=== PATIENT | female | born 1930 | race Caucasian/White ===

== ENCOUNTER 2017-07-02 03:06 | Emergency (ER) | payer MEDICARE, OTHER ==
[~2017-07-02] VITALS: Ht 157.5 cm; Wt 99.8 kg
[~2017-07-02 03:06] MED LIST: BENA40TA2 PO; GABA-534 PO; KETO15CR TP; TRAM50TA2 PO
--- NOTE | 2017-07-02 03:15 | NUR ---
TO BED 5 IS AN 87 YO FEMALE PATIENT BIB SON FOR HIGH BLOOD PRESSURE. PT LAST TOOK CLONIDINE 8PM. NO RELIEF. PATIENT IS AAOX4, NAD NOTED. PLACED ON CARDIAC AND VS MONITORING. COMFORT MEASURES RENDERED.
[2017-07-02] MEDS ORDERED: hydrALAZINE HCL IV 20 MG VIAL ONE (03:25)
[2017-07-02] MEDS ORDERED: hydrALAZINE HCL IV 20 MG VIAL IV ONE ×2 (03:30→04:30)
--- NOTE | 2017-07-02 03:40 | NUR ---
started a saline lock on the right forearm g20, blood drawn and sent to lab.
[2017-07-02] MEDS ORDERED: ONDANSETRON HCL/PF 4 MG/2 ML VIAL ONE (03:42)
--- NOTE | 2017-07-02 03:47 | NUR ---
medicated patient as ordered by Dr Bartholomew.
[2017-07-02 03:51] LABS: BASOPHILS % (AUTO) 0.3 % (0.0-2.0); EOSINOPHILS # (AUTO) 0.1 /CMM (0.0-0.7); EOSINOPHILS % (AUTO) 2.4 % (0.0-6.0); HEMATOCRIT 41 % (33-45); HEMOGLOBIN 13.6 g/dL (11.5-14.8); LYMPHOCYTES # (AUTO) 1.4 /CMM (0.8-4.8); LYMPHOCYTES % (AUTO) 23.6 % (20.0-44.0); MEAN CORPUSCULAR HEMOGLOBIN 30 PG (26.0-33.0); MEAN CORPUSCULAR HGB CONC 34 g/dl (31.0-36.0); MEAN CORPUSCULAR VOLUME 89 fL (82-100); MONOCYTES # (AUTO) 0.4 /CMM (0.1-1.30); MONOCYTES % (AUTO) 7.4 % (2.0-12.0); NEUTROPHILS # (AUTO) 3.8 /CMM (1.8-8.9); NEUTROPHILS % (AUTO) 66.3 % (43.0-81.0); PLATELET COUNT (AUTO) 165 /CMM (150-450); RDW COEFFICIENT OF VARIATION 12.9 (11.5-15.0); RED BLOOD CELL COUNT(AUTO) 4.59 MIL/uL (4.0-5.2); WHITE BLOOD COUNT (AUTO) 5.7 K/uL (4.3-11.0)
--- NOTE | 2017-07-02 03:52 | NUR ---
xr at bedside.
[2017-07-02] MEDS ORDERED: ONDANSETRON HCL/PF 4 MG/2 ML VIAL IV ONE (04:00)
--- NOTE | 2017-07-02 04:06 | NUR ---
patient back from ct.
[2017-07-02 04:08] LABS: ALANINE AMINOTRANSFERASE 30 U/L (12-78); ALBUMIN 3.4 g/dL (3.4-5.0); ALKALINE PHOSPHATASE 104 U/L (46-116); ASPARTATE AMINOTRANSFERASE 19 U/L (15-37); BILIRUBIN,DIRECT 0.1 mg/dL (0.0-0.2); BILIRUBIN,TOTAL 0.3 mg/dL (0.2-1.0); CALCIUM, SERUM 9.3 mg/dL (8.5-10.1); CARBON DIOXIDE 27 mmol/L (21-32); CHLORIDE 101 mmol/L (98-107); CREATININE 1.4 mg/dL (0.6-1.3); GLUCOSE 288 mg/dL (74-106); POTASSIUM 4.3 mmol/L (3.5-5.1); SODIUM SERUM 137 mmol/L (136-145); TOTAL PROTEIN, SERUM 7.3 g/dL (6.4-8.2); UREA NITROGEN, BLOOD 32 mg/dL (7-18)
[2017-07-02 04:10] LABS: INR 0.9 (0.87-1.13); TROPONIN I < 0.017 ng/mL (0.00-0.056)
[2017-07-02] MEDS ORDERED: ACETAMINOPHEN ES 500 MG TABLET ONE (05:14)
--- NOTE | 2017-07-02 05:16 | NUR ---
tylenol 1gm given po for headache per Dr Bartholomew's verbal order.
[2017-07-02] MEDS ORDERED: ACETAMINOPHEN 325 MG TABLET PO ONE (05:30)
--- NOTE | 2017-07-02 05:38 | NUR ---
IV removed. Catheter intact and site benign. Pressure and 4x4 applied to site. No bleeding noted. Patient discharged to home in stable condition. Written and verbal after care instructions given. Patient verbalizes understanding of instruction. Pt is ambulatory with assist of a cane. vss. nad noted on dc. pt picked up by son. No further complaints.
[2017-07-02 05:39] VITALS: BP 167/66
== END 2017-07-02 05:39 | disposition home or self-care (01) ==
LOC: ER 03:11
DX: I10 Essential (primary) hypertension (principal); E11.9 Type 2 diabetes mellitus without complications; R51 Headache
CPT/HCPCS: 36415; 70450; 71045; 80048; 80076; 84484; 85025; 85730; 93005; 96374; 96375; 96376; 99285; A4606; J0360; J2405; Z7610

== ENCOUNTER 2018-01-24 02:45 | Emergency (ER) | payer MEDICARE, OTHER ==
[~2018-01-24] VITALS: Ht 157.5 cm; Wt 100.2 kg
[~2018-01-24 02:45] MED LIST changes: -BENA40TA2 PO; +BENA40TA8 PO
--- NOTE | 2018-01-24 02:53 | NUR ---
PT TO ER BED 13. BBSELF C/C "HIGH BLOOD PRESSURE". +N, -V. +DIZZY. PT PLACED IN GOWN AND ON SQUEAK RATTLE AND LEAK REPAIRER. VSS/RESP EVEN UNLABORED/NAD NOTED/SKIN WARM AND DRY/AFEBRILE/ DENIES N-V-D/AOX4. AWAITNG MD AZUL.
--- NOTE | 2018-01-24 03:10 | NUR ---
EMT AT BEDSIDE FOR EKG.
[2018-01-24] MEDS ORDERED: hydrALAZINE HCL IV 20 MG VIAL ONE ×2 (03:30→04:17)
[2018-01-24] MEDS ORDERED: hydrALAZINE HCL IV 20 MG VIAL IV ONE ×2 (03:30→04:30)
[2018-01-24 03:34] LABS: BASOPHILS % (AUTO) 0.3 % (0.0-2.0); EOSINOPHILS % (AUTO) 2.7 % (0.0-6.0); HEMATOCRIT 45 % (33-45); HEMOGLOBIN 14.8 g/dL (11.5-14.8); LYMPHOCYTES # (AUTO) 1.4 /CMM (0.8-4.8); LYMPHOCYTES % (AUTO) 23.9 % (20.0-44.0); MEAN CORPUSCULAR HEMOGLOBIN 30 PG (26.0-33.0); MEAN CORPUSCULAR HGB CONC 33 g/dl (31.0-36.0); MEAN CORPUSCULAR VOLUME 92 fL (82-100); MONOCYTES # (AUTO) 0.4 /CMM (0.1-1.30); MONOCYTES % (AUTO) 7.7 % (2.0-12.0); NEUTROPHILS # (AUTO) 3.8 /CMM (1.8-8.9); NEUTROPHILS % (AUTO) 65.4 % (43.0-81.0); PLATELET COUNT (AUTO) 171 /CMM (150-450); RDW COEFFICIENT OF VARIATION 14.3 (11.5-15.0); RED BLOOD CELL COUNT(AUTO) 4.95 MIL/uL (4.0-5.2); WHITE BLOOD COUNT (AUTO) 5.8 K/uL (4.3-11.0)
--- NOTE | 2018-01-24 03:38 | NUR ---
20G IV TO R AC X 1 ATTEMPT USING ASEPTIC TECH, BLOOD HANDED OVER TO THE LAB AT BEDSIDE. IV FLUSHES EASILY WITH NS, NO S/S INFILTRATION NOTED AT THIS TIME.
[2018-01-24 03:45] LABS: INR 0.95 (0.87-1.13)
[2018-01-24 03:49] LABS: ALANINE AMINOTRANSFERASE 28 U/L (12-78); ALBUMIN 3.9 g/dL (3.4-5.0); ALKALINE PHOSPHATASE 101 U/L (46-116); ASPARTATE AMINOTRANSFERASE 18 U/L (15-37); BILIRUBIN,DIRECT 0.1 mg/dL (0.0-0.2); BILIRUBIN,TOTAL 0.4 mg/dL (0.2-1.0); CALCIUM, SERUM 8.6 mg/dL (8.5-10.1); CARBON DIOXIDE 30 mmol/L (21-32); CHLORIDE 103 mmol/L (98-107); CREATININE 1.3 mg/dL (0.6-1.3); GLUCOSE 203 mg/dL (74-106); SODIUM SERUM 140 mmol/L (136-145); TOTAL PROTEIN, SERUM 7.9 g/dL (6.4-8.2); UREA NITROGEN, BLOOD 27 mg/dL (7-18)
[2018-01-24 03:50] LABS: TROPONIN I < 0.017 ng/mL (0.00-0.056)
--- NOTE | 2018-01-24 03:55 | NUR ---
PT TO CT VIA STRETCHER.
--- NOTE | 2018-01-24 04:13 | NUR ---
PT BACK FROM CT.
--- NOTE | 2018-01-24 04:15 | NUR ---
MADE AWARE PT B/P 228/74. NEW ORDERS RECEIVED.
[2018-01-24] MEDS ORDERED: GABAPENTIN 100 MG CAPSULE ONE ×2 (04:48→05:16)
[2018-01-24] MEDS ORDERED: LORAZEPAM INJ 2 MG/ML VIAL ONE (04:49)
[2018-01-24] MEDS ORDERED: NS 0.9% IV SCH (05:00)
[2018-01-24] MEDS ORDERED: LORAZEPAM INJ 2 MG/ML VIAL IV ONE (05:00)
[2018-01-24] MEDS ORDERED: HYDRALAZINE HCL IV SCH (05:00)
[2018-01-24] MEDS ORDERED: GABAPENTIN 100 MG CAPSULE PO ONE ×2 (05:00→05:30)
--- NOTE | 2018-01-24 05:33 | NUR ---
MD AT BEDSIDE SPEAKING WITH PATIENT.
[2018-01-24] MEDS ORDERED: CLONIDINE HCL 0.1 MG TABLET ONE (05:49)
[2018-01-24] MEDS ORDERED: CLONIDINE HCL 0.1 MG TABLET PO ONE (06:00)
--- NOTE | 2018-01-24 06:10 | NUR ---
IV removed. Catheter intact and site benign. Pressure and 4x4 applied to site. No bleeding noted. Patient discharged with son to home in stable condition. Written and verbal after care instructions given. Patient verbalizes understanding of instruction. Patient is awake and alert to self, day, and place. Patient discharged by wheelchair.
[2018-01-24 06:11] VITALS: BP 156/98
== END 2018-01-24 06:12 | disposition home or self-care (01) ==
LOC: ER 02:47
DX: I16.0 Hypertensive urgency (principal); E11.9 Type 2 diabetes mellitus without complications
CPT/HCPCS: 36415; 70450; 71045; 80048; 80076; 84484; 85025; 85730; 93005; 96374; 96375; 96376; 99285; A4606; J0360 ×2; J2060; A4216; Z7610

== ENCOUNTER 2019-02-08 16:25 | Inpatient (IN) | payer MEDICARE, OTHER ==
[~2019-02-08] VITALS: Ht 157.5 cm; Wt 93.0 kg
--- NOTE | 2019-02-08 16:34 | NUR ---
"BIB Son from home c/o "Chest Pressure past 3d" PT AAOX4, -SOB, NAD NOTED, VSS ,PENDING MD AZUL
[2019-02-08 17:09] LABS: BASOPHILS # (AUTO) 0.1 /CMM (0.0-0.2); BASOPHILS % (AUTO) 1.2 % (0.0-2.0); EOSINOPHILS % (AUTO) 2.8 % (0.0-6.0); HEMATOCRIT 37 % (33-45); HEMOGLOBIN 12.2 g/dL (11.5-14.8); LYMPHOCYTES # (AUTO) 1.3 /CMM (0.8-4.8); MEAN CORPUSCULAR HGB CONC 33 g/dl (31.0-36.0); MEAN CORPUSCULAR VOLUME 93 fL (82-100); MONOCYTES # (AUTO) 0.4 /CMM (0.1-1.30); MONOCYTES % (AUTO) 7.9 % (2.0-12.0); NEUTROPHILS % (AUTO) 61.1 % (43.0-81.0); PLATELET COUNT (AUTO) 130 /CMM (150-450); RED BLOOD CELL COUNT(AUTO) 3.92 MIL/uL (4.0-5.2); WHITE BLOOD COUNT (AUTO) 4.9 K/uL (4.3-11.0)
[2019-02-08] MEDS ORDERED: NITROGLYCERIN 0.4 MG/TAB BOTTLE ONE (17:11)
[2019-02-08 17:20] LABS: CALCIUM, SERUM 8.9 mg/dL (8.5-10.1); CARBON DIOXIDE 28 mmol/L (21-32); CHLORIDE 106 mmol/L (98-107); CREATININE 1.3 mg/dL (0.6-1.3); GLUCOSE 116 mg/dL (74-106); POTASSIUM 4.2 mmol/L (3.5-5.1); SODIUM SERUM 143 mmol/L (136-145); UREA NITROGEN, BLOOD 28 mg/dL (7-18)
[2019-02-08 17:26] LABS: ALANINE AMINOTRANSFERASE 19 U/L (12-78); ALBUMIN 3.5 g/dL (3.4-5.0); ALKALINE PHOSPHATASE 66 U/L (46-116); ASPARTATE AMINOTRANSFERASE 14 U/L (15-37); BILIRUBIN,DIRECT 0.1 mg/dL (0.0-0.2); BILIRUBIN,TOTAL 0.4 mg/dL (0.2-1.0); TOTAL PROTEIN, SERUM 6.6 g/dL (6.4-8.2)
[2019-02-08] MEDS ORDERED: CARV25TA PO (17:27)
[2019-02-08] MEDS ORDERED: LOSA100T31 PO (17:27)
[2019-02-08] MEDS ORDERED: ASPI-605 PO (17:27)
[2019-02-08] MEDS ORDERED: METF-442 PO (17:27)
[2019-02-08] MEDS ORDERED: MELA3TAB PO (17:27)
[2019-02-08] MEDS ORDERED: DOXA8TAB79 PO (17:27)
[2019-02-08] MEDS ORDERED: POTA10CA43 PO (17:27)
[2019-02-08] MEDS ORDERED: *INS NOVA SQ (17:27)
[2019-02-08] MEDS ORDERED: INSU200I4 SQ ×2 (17:27)
[2019-02-08] MEDS ORDERED: CLON0.1T PO (17:27)
[2019-02-08] MEDS ORDERED: PREG75CA PO (17:27)
[2019-02-08] MEDS ORDERED: CHOL20004 PO (17:27)
[2019-02-08] MEDS ORDERED: DULO30CA2 PO (17:27)
[2019-02-08] MEDS ORDERED: NITR0.4T48 SL (17:27)
[2019-02-08] MEDS ORDERED: GABA800T11 PO (17:27)
[2019-02-08] MEDS ORDERED: CHLO25TA2 PO (17:27)
[2019-02-08] MEDS ORDERED: DULA0.75 SQ (17:27)
[2019-02-08] MEDS ORDERED: BLOO-697 IN (17:27)
[2019-02-08] MEDS ORDERED: NITROGLYCERIN 0.4 MG/TAB BOTTLE SL ONE ×2 (17:30→19:00)
[2019-02-08] MEDS ORDERED: ASPIRIN 325 MG TABLET PO ONE (18:00)
[2019-02-08] MEDS ORDERED: ASPIRIN 325 MG TABLET ONE (18:07)
--- NOTE | 2019-02-08 18:35 | NUR ---
PT GOING TO TELE 310.2
[2019-02-08] MEDS ORDERED: MAGNESIUM HYDROXIDE 30 ML UDC PO PRN (19:00)
[2019-02-08] MEDS ORDERED: DEXTROSE 50%-WATER 50 ML DISP.SYRIN IV PRN (19:00)
[2019-02-08] MEDS ORDERED: MORPHINE SULFATE INJ 2 MG/ML DISP.SYRIN IV PRN (19:00)
[2019-02-08] MEDS ORDERED: TEMAZEPAM 15 MG CAPSULE PO PRN (19:00)
[2019-02-08] MEDS ORDERED: ONDANSETRON HCL/PF 4 MG/2 ML VIAL IVP PRN (19:00)
[2019-02-08] MEDS ORDERED: ACETAMINOPHEN 325 MG TABLET PO PRN (19:00)
[2019-02-08] MEDS ORDERED: HYDROCODONE/APAP 5/325MG 1 EACH TABLET PO PRN (19:00)
[2019-02-08] MEDS ORDERED: MAG HYDROX/AL HYDROX/SIMETH 30 ML UDC PO PRN (19:00)
[2019-02-08] MEDS ORDERED: NITROGLYCERIN 0.4 MG/TAB BOTTLE SL PRN (19:30)
--- NOTE | 2019-02-08 20:23 | NUR ---
REPORT GIVEN TO SHAN SHETH FOR ALLY; PT WILL BE TRANSPORTED TO 3RD FLOOR VIA ACLS PROTOCOL
--- NOTE | 2019-02-08 20:24 | NUR ---
grinding machine operator notes Received report from ER nurse MERYL Sanon
--- NOTE | 2019-02-08 20:32 | NUR ---
banking teacher notes Echo at the bedside.
--- NOTE | 2019-02-08 20:40 | NUR ---
private banker notes Received Pt from ER nurse MERYL Sanon. Pt arrived at unit via gurney with ACLS Protocol. Pt is 88 Y O F with a diagnose of Chest pain, possible acute coronary syndrome. Pt is alert and oriented x4. Respiration is normal. No SOB. No nausea or vomiting. Pt denies any pain or discomfort at this time. IV sites at Left forearm is clean, intact, patent and SL. Skin dry warm to touch. Pt has a steady gait and able to ambulate with Pt's cane and assistant professor of chemistry. Pt's cane at the bedside. Skin assessment done. Pt's skin is intact. Pt's belonging was checked by VIC Molina and placed in Pt's chart. Educate Pt the use of unit amenities (call light). Instructed to call. Safety precautions is maintained. Bed at low position, brakes locked, side rails upX2 and call light is within reach. Will continue to monitor.
[2019-02-08 20:44] VITALS: BP 182/72
[2019-02-08 21:43] VITALS: BP 184/74
[2019-02-08] MEDS: DOXAZOSIN MESYLATE (4 MG) 4 MG TABLET PO SCH (21:45)
[2019-02-08] MEDS: BLOOD SUGAR DIAGNOSTIC 1 EACH STRIP IN SCH (21:52)
--- NOTE | 2019-02-08 22:47 | NUR ---
tape duplicator notes Administered Tylenol 325mg/2tabs/PO as ordered for headache per Pt request. Will continue to monitor.
[2019-02-08 23:17] VITALS: BP 186/67
[2019-02-08] MEDS: CLONIDINE HCL 0.1 MG TABLET PO SCH (23:21)
[2019-02-09] VITALS (8 sets, daily range): BP systolic 132–172; BP diastolic 60–105
--- NOTE | 2019-02-09 01:00 | NUR ---
global climate change researcher notes environmental monitoring technician showed sinus rythm 46 bpm with first degree AV block. Charge nurse MERYL Mojica informed and notify. Cardiology consult in the morning. Pt is alert and oriented X4, and asymptomatic. Pt denies any pain or discomfort at this time. Pt is NPO. Will continue to monitor.
--- NOTE | 2019-02-09 04:29 | NUR ---
psychological aide notes Contacted and informed DR. Martinez about Pt's BP. BP 172/61, pulse 51. MD ordered Lisinopril 10 mg/PO/one time. Charge nurse MERYL Mojica is aware and notify. Order carried out.
--- NOTE | 2019-02-09 04:39 | NUR ---
gut snatcher notes Administered Lisinopril 10 mg/PO/one time as ordered for Pt for high BP. BP 172/61, PULSE 51. Will continue to monitor
--- NOTE | 2019-02-09 04:40 | NUR ---
garment mender notes Pt's requesting for a walk. Pt was ambulating in nursing station and hallway. Pt ambulated with cane and veterinary technician assistant. Pt tolerated activity well. No SOB. No dizziness. Will continue to monitor.
[2019-02-09] MEDS ORDERED: LISINOPRIL (10MG) 10 MG TABLET PO ONE (05:00)
[2019-02-09 06:11] LABS: BASOPHILS % (AUTO) 0.1 % (0.0-2.0); EOSINOPHILS % (AUTO) 2.7 % (0.0-6.0); HEMATOCRIT 37 % (33-45); HEMOGLOBIN 12.5 g/dL (11.5-14.8); LYMPHOCYTES # (AUTO) 1.4 /CMM (0.8-4.8); MEAN CORPUSCULAR HGB CONC 34 g/dl (31.0-36.0); MEAN CORPUSCULAR VOLUME 93 fL (82-100); MONOCYTES # (AUTO) 0.4 /CMM (0.1-1.30); MONOCYTES % (AUTO) 7.1 % (2.0-12.0); NEUTROPHILS # (AUTO) 3.6 /CMM (1.8-8.9); NEUTROPHILS % (AUTO) 65.1 % (43.0-81.0); PLATELET COUNT (AUTO) 133 /CMM (150-450); RED BLOOD CELL COUNT(AUTO) 3.99 MIL/uL (4.0-5.2); WHITE BLOOD COUNT (AUTO) 5.6 K/uL (4.3-11.0)
--- NOTE | 2019-02-09 06:30 | NUR ---
pan washer closing notes Pt is alert and oriented X4. Pt is resting in bed comfortably. Awaken easily. Respiration is normal. No SOB. No S/S of distress noted. IV sites at [facility] is clean, intact, patent and SL. Routine meds were given as ordered. Cardiac monitored showed sinus gabbie 49 bpm with first degree AV block. Kept Pt NPO. Kept Pt warm, clean, dry and comfortable. Safety precautions is maintained, side rails upX2, brakes locked and call light is within reach. Will endorse to morning nurse for ALLY.
[2019-02-09] MEDS: BLOOD SUGAR DIAGNOSTIC 1 EACH STRIP IN SCH ×4 (06:32→21:46)
[2019-02-09 06:44] LABS: CHOLESTEROL 148 mg/dL (<200); HDL CHOLESTEROL 40 mg/dL (40-60); LDL 83 mg/dL (0-99); TRIGLYCERIDES 181 mg/dL (30-150)
[2019-02-09 06:59] LABS: CALCIUM, SERUM 8.5 mg/dL (8.5-10.1); CARBON DIOXIDE 28 mmol/L (21-32); CHLORIDE 106 mmol/L (98-107); CREATININE 1.1 mg/dL (0.6-1.3); GLUCOSE 115 mg/dL (74-106); MAGNESIUM 2.1 mg/dL (1.8-2.4); PHOSPHORUS 3.1 mg/dL (2.5-4.9); POTASSIUM 3.9 mmol/L (3.5-5.1); SODIUM SERUM 143 mmol/L (136-145); UREA NITROGEN, BLOOD 26 mg/dL (7-18)
[2019-02-09] MEDS ORDERED: FUROSEMIDE 40 MG/4 ML VIAL IV ONE (07:21)
[2019-02-09] MEDS: CLONIDINE HCL 0.1 MG TABLET PO SCH ×2 (08:01→17:14)
[2019-02-09] MEDS ORDERED: IV NS 0.9% 250 ML IV ONE (08:02)
[2019-02-09] MEDS ORDERED: IOHEXOL-350 100 ML VIAL IV ONE (08:02)
[2019-02-09] MEDS: GABAPENTIN 100 MG CAPSULE PO SCH ×2 (08:31→17:13)
[2019-02-09] MEDS: CHOLECALCIFEROL 1,000 UNIT TABLET (VIT D3) PO SCH (08:35)
[2019-02-09] MEDS: PREGABALIN 25 MG CAPSULE PO SCH ×2 (08:35→17:11)
[2019-02-09] MEDS: HYDROCHLOROTHIAZIDE 25 MG TABLET PO SCH (08:36)
[2019-02-09] MEDS: ASPIRIN EC 81 MG TABLET.DR PO SCH (08:36)
[2019-02-09] MEDS: CARVEDILOL 12.5 MG TABLET PO SCH (08:37)
[2019-02-09] MEDS: VALSARTAN 80 MG TABLET PO SCH (08:39)
[2019-02-09] MEDS: POTASSIUM CHLORIDE 10 MEQ TABLET.SA PO SCH (08:40)
[2019-02-09] MEDS: DULOXETINE HCL 30 MG CAPSULE.DR PO SCH (08:41)
[2019-02-09] MEDS ORDERED: CARVEDILOL 25 MG TABLET PO SCH (09:00)
[2019-02-09] MEDS ORDERED: CLONIDINE HCL 0.1 MG TABLET PO SCH (09:00)
[2019-02-09] MEDS ORDERED: LOSARTAN POTASSIUM 25 MG TABLET PO SCH (09:00)
[2019-02-09] MEDS ORDERED: NITROGLYCERIN 0.4 MG/TAB BOTTLE SL ONE (10:00)
[2019-02-09] MEDS ORDERED: METOPROLOL TARTRATE INJ 5 MG/5 ML AMPUL IVP ONE (10:00)
[2019-02-09] MEDS: INSULIN REGULAR, HUMAN 100 UNIT/ML 3 ML VIAL SQ PRN ×2 (12:48→21:47)
--- NOTE | 2019-02-09 18:58 | NUR ---
RN CLOSING NOTE PATIENT IN BED AND ALERT X4. IV PATENT AND FLUSHING. EATING WELL. PARTICIPATING IN CARE. CTA DONE TODAY RESULTS SHOW STENOSIS IN MULTIPLE LOCATIONS AWATITING CARDIOLOGY AND MD FOR NEW ORDERS IF NEED BE. BLOOD SUGAR MANAGED WITH INSULIN. PATIENT ABLE TO AMBULATE WITH CANE AND ASSISTANCE. CONTINUE HOSPITALIZATION AT THIS TIME. SON CALLED AND WANTED TO CONFIRM MEDICATION PROFILE, ATROVOSTATIN WAS NOT INCLUDED IN MEDICATION PROFILE AT THIS TIME OF ADMISSION. RN INFORMED PATIENT. ALL NEEDS MET AT THIS TIME. BED IN LOW POSITION AND CALL LIGHT WITHIN REACH. ALL NEEDS MET AT THIS TIME.
--- NOTE | 2019-02-09 19:53 | NUR ---
MS RN NOTE RECEIVED PT IN STABLE CONDITION A/O X4, CURRENTLY RESTING IN BED, EASILY RESPONDS TO NAME. NO SIGNS OF SOB OR DISTRESS, NO C/O PAIN. IV IN LFA #[address] ALL CURRENT NEEDS ATTENDED TO. BED LOW, LOCKED, UPPER RAILS UP, AND CALL LIGHT WITHIN REACH. WILL CONT. TO MONITOR.
[2019-02-09] MEDS: DOXAZOSIN MESYLATE (4 MG) 4 MG TABLET PO SCH (21:42)
--- NOTE | 2019-02-10 06:15 | NUR ---
MS RN NOTE PT IN STABLE CONDITION A/O X4, CURRENTLY RESTING IN BED, EASILY RESPONDS TO NAME. NO SIGNS OF SOB OR DISTRESS, NO C/O PAIN. IV IN LFA #[address] ALL CURRENT NEEDS ATTENDED TO. BED LOW, LOCKED, UPPER RAILS UP, AND CALL LIGHT WITHIN REACH. WILL CONT. TO MONITOR AND ENDORSE TO NEXT SHIFT FOR ALLY.
[2019-02-10 06:26] LABS: BASOPHILS % (AUTO) 0.5 % (0.0-2.0); EOSINOPHILS % (AUTO) 2.6 % (0.0-6.0); HEMATOCRIT 37 % (33-45); HEMOGLOBIN 12.6 g/dL (11.5-14.8); LYMPHOCYTES # (AUTO) 1.2 /CMM (0.8-4.8); LYMPHOCYTES % (AUTO) 23.1 % (20.0-44.0); MEAN CORPUSCULAR HGB CONC 34 g/dl (31.0-36.0); MEAN CORPUSCULAR VOLUME 93 fL (82-100); MONOCYTES # (AUTO) 0.4 /CMM (0.1-1.30); MONOCYTES % (AUTO) 7.7 % (2.0-12.0); NEUTROPHILS # (AUTO) 3.3 /CMM (1.8-8.9); NEUTROPHILS % (AUTO) 66.1 % (43.0-81.0); PLATELET COUNT (AUTO) 132 /CMM (150-450); RED BLOOD CELL COUNT(AUTO) 4.02 MIL/uL (4.0-5.2)
[2019-02-10] MEDS: INSULIN REGULAR, HUMAN 100 UNIT/ML 3 ML VIAL SQ PRN ×3 (06:29→17:26)
[2019-02-10 06:37] LABS: ALANINE AMINOTRANSFERASE 15 U/L (12-78); ALBUMIN 3.4 g/dL (3.4-5.0); ALKALINE PHOSPHATASE 67 U/L (46-116); ASPARTATE AMINOTRANSFERASE 12 U/L (15-37); BILIRUBIN,TOTAL 0.5 mg/dL (0.2-1.0); CALCIUM, SERUM 8.6 mg/dL (8.5-10.1); CARBON DIOXIDE 30 mmol/L (21-32); CHLORIDE 101 mmol/L (98-107); CREATININE 1.3 mg/dL (0.6-1.3); GLUCOSE 155 mg/dL (74-106); MAGNESIUM 1.8 mg/dL (1.8-2.4); PHOSPHORUS 4.3 mg/dL (2.5-4.9); POTASSIUM 3.9 mmol/L (3.5-5.1); SODIUM SERUM 139 mmol/L (136-145); TOTAL PROTEIN, SERUM 6.8 g/dL (6.4-8.2); UREA NITROGEN, BLOOD 26 mg/dL (7-18)
[2019-02-10] MEDS: BLOOD SUGAR DIAGNOSTIC 1 EACH STRIP IN SCH ×3 (07:32→17:25)
--- NOTE | 2019-02-10 07:40 | NUR ---
MS RN OPENING NOTES RECEIVED PT AWAKE, SITTING AT A CHAIR, A/O X3-4. PT TOLERATING RA, WITH NO ACUTE RESPIRATORY DISTRESS NOTED. PT DENIES ANY PAIN OR DISCOMFORT AT THIS TIME. PT ALSO DENIES CONCERNS AND QUESTIONS AT THIS MOMENT. PIV TO LFA G18 AND RFA, BOTH FLUSHED WITH NS, INTACT AND OPERATIONAL. PT KEPT COMFORTABLE AT THIS TIME. CALL LIGHT KEPT WITHIN REACH. PT'S BED IN LOWEST, LOCKED POSITION WITH SR X2. WILL CONTINUE PLAN OF CARE.
[2019-02-10 08:00] VITALS: BP 110/53
[2019-02-10] MEDS: POTASSIUM CHLORIDE 10 MEQ TABLET.SA PO SCH (08:27)
[2019-02-10] MEDS: HYDROCHLOROTHIAZIDE 25 MG TABLET PO SCH (08:28)
[2019-02-10] MEDS: ASPIRIN EC 81 MG TABLET.DR PO SCH (08:28)
[2019-02-10] MEDS: DULOXETINE HCL 30 MG CAPSULE.DR PO SCH (08:28)
[2019-02-10] MEDS: GABAPENTIN 100 MG CAPSULE PO SCH ×2 (08:28→17:17)
[2019-02-10] MEDS: CHOLECALCIFEROL 1,000 UNIT TABLET (VIT D3) PO SCH (08:28)
[2019-02-10] MEDS: PREGABALIN 25 MG CAPSULE PO SCH ×2 (08:37→17:00)
[2019-02-10] MEDS: CLONIDINE HCL 0.1 MG TABLET PO SCH ×2 (08:37→17:17)
[2019-02-10] MEDS: CARVEDILOL 12.5 MG TABLET PO SCH (08:37)
[2019-02-10] MEDS: VALSARTAN 80 MG TABLET PO SCH (08:38)
[2019-02-10] MEDS ORDERED: IV NS 0.9% 1,000 ML IV PRN (08:51)
[2019-02-10] MEDS ORDERED: ATORVASTATIN 10 MG TABLET PO SCH (09:00)
--- NOTE | 2019-02-10 09:08 | NUR ---
MS RN NOTES DR RANGEL CAME AND SEN THE PT. ORDERED FOR PT TO BE MPO EXCEPT MEDS FOR CARDIAC CATH PROCEDURE TODAY. PT REFUSED, RISK AND BENEFITS EXPLAINED. HOSPITALIST/SQUADRON WORKER/NN MADE AWARE AND CAME TO THE ROOM AND EXPLAINED RISK AND BENEFITS AGAIN, PT INSISTED TO REFUSED. SON/COLLETTE CALLED AND MADE AWARE OF PT'S REFUSAL FOR THE PROCEDURE. SON STATED HE'LL BE HERE IN AN HOUR TO CONVINCE HIS MOM AND TO SIGN CONSENT.
--- NOTE | 2019-02-10 12:30 | NUR ---
MS RN NOTES SON/COLLETTE PRESENT AT BEDSIDE TRIED AND DISCUSSED TO PT REGARDING CARDIAC CATH. PT INSISTED TO REFUSE. HOSPITALIST/CARD LACER JACQUARD/NN MADE AWARE NO NEW ORDERS AT THIS TIME.
[2019-02-10 15:45] VITALS: BP 128/70
--- NOTE | 2019-02-10 19:32 | NUR ---
MS RN CLOSING NOTES PT AWAKE, SITTING AT A CHAIR, A/O X3-4. PT TOLERATING RA, WITH NO ACUTE RESPIRATORY DISTRESS NOTED. PT DENIES ANY PAIN OR DISCOMFORT AT THIS TIME.PIV TO LFA G18 AND RFA, BOTH FLUSHED WITH NS, INTACT AND OPERATIONAL. ALL NEEDS AND CARE ATTENDED. PT AWARE OF DISCHARGE PLAN TONIGHT. SON/COLLETTE TO CARTOGRAPHY/MAPPING TECHNICIAN AT 2230. PT KEPT COMFORTABLE. CALL LIGHT KEPT WITHIN REACH. PT'S BED IN LOWEST, LOCKED POSITION WITH SR X2. ENDORSED TO INCOMING NIGHT NURSE VENUS/RN FOR ALLY.
[2019-02-10 20:00] VITALS: BP 142/66
--- NOTE | 2019-02-10 22:00 | NUR ---
MS SOCIAL STAFF WORKER NOTES PT A/O X3 AND ABLE TO MAKE NEEDS KNOWN. PT DISCHARGING WITH SON/COLLETTE. VVS. NO COMPLAINTS OF PAIN AT THIS TIME. RESPIRATIONS EVEN AND UNLABORED WITH NO S/S OF ACUTE DISTRESS OR SOB NOTED. REMOVED PT'S IVS WITH CATH INTACT AND NO BLEEDING. EXPLAINED DISCHARGE DIRECTIONS TO PT AND FAMILY AND BOTH VERBALIZED UNDERSTANDING. BELONGING LIST SIGNED WITH NO REPORTED MISSING ITEMS. DISCHARGE PAPERS GIVEN TO PT TO TAKE WITH. PT WHEELED OUT TO CAR VIA WHEELCHAIR.
--- NOTE | 2019-02-10 23:47 | NUR ---
MS MERYL NOTES RECEIVED PT IN BED AWAKE AND ABLE TO MAKE NEEDS KNOWN. PT A/O X3-4. RESPIRATIONS EVEN AND UNLABORED WITH NO S/S OF ACUTE DISTRESS OR SOB NOTED. PT TOLERATING RA. PT DENIES PAIN AT THIS TIME. IV TO LFA G18 AND RFA, BOTH FLUSHED WITH NS, PATENT AND INTACT AND SL. SAFETY MEASURES IN PLACE [facility] BED IN LOWEST LOCKED POSITION WITH SIDE RAILS UP X2. CALL LIGHT WITHIN REACH. WILL CONTINUE TO MONITOR. Addendum: 02/10/19 at 2933 by VENUS TONG RN TIME 1909
== END 2019-02-10 22:00 | disposition home or self-care (01) | DRG 303 ==
LOC: ER 16:28 → TELE 18:38 → MED 02-09 10:32
PROVIDERS: ADMIT Nurse Practitioner Acute Care; ATTEND Nurse Practitioner Acute Care
DX: I25.10 Atherosclerotic heart disease of native coronary artery without angina pectoris (principal); E11.9 Type 2 diabetes mellitus without complications; E78.5 Hyperlipidemia, unspecified; M19.90 Unspecified osteoarthritis, unspecified site; I10 Essential (primary) hypertension; Z79.4 Long term (current) use of insulin; G47.33 Obstructive sleep apnea (adult) (pediatric); Z79.82 Long term (current) use of aspirin; Z79.84 Long term (current) use of oral hypoglycemic drugs; Z79.899 Other long term (current) drug therapy; Z96.651 Presence of right artificial knee joint; I70.0 Atherosclerosis of aorta; Z68.39 Body mass index [BMI] 39.0-39.9, adult; E66.01 Morbid (severe) obesity due to excess calories; R00.1 Bradycardia, unspecified; I25.84 Coronary atherosclerosis due to calcified coronary lesion; R79.89 Other specified abnormal findings of blood chemistry
CPT/HCPCS: 36415; 71045-TC; 75574; 80048-TC; 80053-TC; 80061-TC; 80076-TC; 82962-TC; 83735-TC; 83880; 84100-TC; 84484-TC; 85025-TC; 87081-TC; 93307-TC; G0378; J1815; J1940; J7030; J7050; Q9967

== ENCOUNTER 2019-06-03 01:34 | Inpatient (IN) | payer MEDICARE, OTHER ==
[~2019-06-03] VITALS: Ht 157.5 cm; Wt 98.0 kg
[~2019-06-03 01:34] MED LIST changes: +*INS NOVA SQ; +ASPI-605 PO; -BENA40TA8 PO; +BLOO-697 IN; +CARV25TA PO; +CHLO25TA2 PO; +CHOL20004 PO; +CLON0.1T PO; +DOXA8TAB79 PO; +DULA0.75 SQ; +DULO30CA2 PO; -GABA-534 PO; +GABA800T11 PO; +INSU200I4 SQ; -KETO15CR TP; +LOSA100T31 PO; +MELA3TAB63 PO; +METF-442 PO; +NITR0.4T48 SL; +POTA10CA43 PO; +PREG75CA PO; -TRAM50TA2 PO
--- NOTE | 2019-06-03 01:58 | NUR ---
[id number] FROM HOME C/C DIFFICULTY BREATHING AND INTERMITTENT COUGH, PT ALSO REPORTED ON AND OFF CP FOR THE PAST MONTH . BG 226 PER EMS, PLACED ON A MONITOR. VSS
[2019-06-03 02:34] LABS: BASOPHILS % (AUTO) 0.5 % (0.0-2.0); EOSINOPHILS % (AUTO) 3.3 % (0.0-6.0); HEMATOCRIT 32 % (33-45); HEMOGLOBIN 10.6 g/dL (11.5-14.8); LYMPHOCYTES # (AUTO) 0.7 /CMM (0.8-4.8); LYMPHOCYTES % (AUTO) 12.5 % (20.0-44.0); MEAN CORPUSCULAR HGB CONC 33 g/dl (31.0-36.0); MEAN CORPUSCULAR VOLUME 92 fL (82-100); MONOCYTES # (AUTO) 0.4 /CMM (0.1-1.30); NEUTROPHILS # (AUTO) 4.5 /CMM (1.8-8.9); NEUTROPHILS % (AUTO) 76.7 % (43.0-81.0); PLATELET COUNT (AUTO) 134 /CMM (150-450); RED BLOOD CELL COUNT(AUTO) 3.46 MIL/uL (4.0-5.2); WHITE BLOOD COUNT (AUTO) 5.9 K/uL (4.3-11.0)
[2019-06-03 02:41] LABS: CALCIUM, SERUM 8.3 mg/dL (8.5-10.1); CARBON DIOXIDE 25 mmol/L (21-32); CHLORIDE 106 mmol/L (98-107); CREATININE 1.5 mg/dL (0.6-1.3); GLUCOSE 213 mg/dL (74-106); POTASSIUM 5.2 mmol/L (3.5-5.1); SODIUM SERUM 141 mmol/L (136-145); UREA NITROGEN, BLOOD 42 mg/dL (7-18)
[2019-06-03 02:55] LABS: B-TYPE NATRIURETIC PEPTIDE 237 PG/ML (0-125)
--- NOTE | 2019-06-03 03:27 | NUR ---
AT THE BED SIDE
--- NOTE | 2019-06-03 03:45 | NUR ---
SEEN BY HERMILO BAHENA DNP
[2019-06-03] MEDS ORDERED: Z GUARD REMEDY 2 OZ OINT TP PRN (04:00)
[2019-06-03] MEDS ORDERED: ONDANSETRON HCL/PF 4 MG/2 ML VIAL IVP PRN (04:00)
[2019-06-03] MEDS ORDERED: MAGNESIUM HYDROXIDE 30 ML UDC PO PRN (04:00)
[2019-06-03] MEDS ORDERED: ACETAMINOPHEN 325 MG TABLET PO PRN (04:00)
[2019-06-03] MEDS ORDERED: DEXTROSE 50%-WATER 50 ML DISP.SYRIN IV PRN (04:00)
[2019-06-03] MEDS ORDERED: ZOLPIDEM TARTRATE 5 MG TABLET PO PRN (04:00)
[2019-06-03] MEDS ORDERED: FUROSEMIDE 40 MG/4 ML VIAL ONE (04:16)
[2019-06-03] MEDS ORDERED: FUROSEMIDE 40 MG/4 ML VIAL IV ONE (04:30)
--- NOTE | 2019-06-03 04:42 | NUR ---
REPORT GIVEN TO AFSANEH ON THIRD FLOOR
[2019-06-03 05:00] VITALS: BP 129/69
--- NOTE | 2019-06-03 05:00 | NUR ---
RN NOTES RECEIVED PT. FROM ER WITH DX. OF ACS, PATIENT IS A/OX3, AMBULATE WITH ASSIST, SB ON TELE MONITOR HR-56, DENIES PAIN, NO SOB, ADMISSION INSTRUCTION WAS GIVEN, CALL LIGHT WITHIN REACH, BED IN LOCKED POSITION, SIDERAILUPX2, CONTINUE TO MONITOR
--- NOTE | 2019-06-03 05:02 | NUR ---
pt was transferred to counts include 234 beds at the [facility]- under acls in stable condition
[2019-06-03 05:30] VITALS: BP 122/52
[2019-06-03] MEDS ORDERED: ATORVASTATIN 10 MG TABLET ONE (05:36)
[2019-06-03] MEDS: ATORVASTATIN 10 MG TABLET PO SCH ×2 (05:42→22:36)
--- NOTE | 2019-06-03 05:45 | NUR ---
RN NOTES COMPLAINED OF HEADACHE-TYLENOL 650MG PO GIVEN ORDERED
--- NOTE | 2019-06-03 06:18 | NUR ---
RN NOTES PT. BLOOD SUGAR -145, REFUSED INSULIN COVERAGE
[2019-06-03 06:38] VITALS: BP 129/69
--- NOTE | 2019-06-03 06:40 | NUR ---
RN NOTES SLEEPING BUT AROUSABLE, DENIES PAIN, NO SOB, CALL LIGHT WITHIN REACH, SIDERAILSUPX2, PT. NEEDS ATTENDED
[2019-06-03] MEDS ORDERED: BLOOD SUGAR DIAGNOSTIC 1 EACH STRIP IN SCH (07:30)
[2019-06-03] MEDS: BLOOD SUGAR DIAGNOSTIC 1 EACH STRIP IN SCH ×4 (07:33→22:43)
[2019-06-03 07:37] LABS: BASOPHILS % (AUTO) 0.5 % (0.0-2.0); HEMATOCRIT 31 % (33-45); HEMOGLOBIN 10.3 g/dL (11.5-14.8); LYMPHOCYTES # (AUTO) 0.9 /CMM (0.8-4.8); LYMPHOCYTES % (AUTO) 16.3 % (20.0-44.0); MEAN CORPUSCULAR HGB CONC 33 g/dl (31.0-36.0); MEAN CORPUSCULAR VOLUME 92 fL (82-100); MONOCYTES # (AUTO) 0.4 /CMM (0.1-1.30); MONOCYTES % (AUTO) 6.8 % (2.0-12.0); NEUTROPHILS # (AUTO) 4.3 /CMM (1.8-8.9); NEUTROPHILS % (AUTO) 74.4 % (43.0-81.0); PLATELET COUNT (AUTO) 134 /CMM (150-450); RED BLOOD CELL COUNT(AUTO) 3.36 MIL/uL (4.0-5.2); WHITE BLOOD COUNT (AUTO) 5.7 K/uL (4.3-11.0)
[2019-06-03 07:43] LABS: CALCIUM, SERUM 8.2 mg/dL (8.5-10.1); CARBON DIOXIDE 25 mmol/L (21-32); CHLORIDE 108 mmol/L (98-107); CREATININE 1.5 mg/dL (0.6-1.3); GLUCOSE 164 mg/dL (74-106); MAGNESIUM 2.2 mg/dL (1.8-2.4); PHOSPHORUS 4.1 mg/dL (2.5-4.9); POTASSIUM 4.8 mmol/L (3.5-5.1); SODIUM SERUM 141 mmol/L (136-145); UREA NITROGEN, BLOOD 41 mg/dL (7-18)
[2019-06-03 07:45] LABS: CHOLESTEROL 107 mg/dL (<200); HDL CHOLESTEROL 45 mg/dL (40-60); LDL 55 mg/dL (0-99); TRIGLYCERIDES 79 mg/dL (30-150)
--- NOTE | 2019-06-03 07:50 | NUR ---
TELE/RN OPENING NOTES RECEIVED PATIENT RESTING IN BED COMFORTABLY ALERT AND ORIENTED X4. WITH TELE MONITOR IN PLACE WITH THE READING OF A PACING AT 95. WITH HL AT LEFT WRIST GAUGE [address] INTACT AND PATENT. NO SHORTNESS OF BREATH. DENIES ANY PAIN AT THIS TIME. WILL CONTINUE TO MONITOR. Addendum: 06/03/19 at 0804 by PHILIPPE ACOSTA RN ERROR WRONG DOCUMENTATION
[2019-06-03 07:53] LABS: MAGNESIUM 2.1 mg/dL (1.8-2.4)
[2019-06-03 08:00] VITALS: BP 146/57
--- NOTE | 2019-06-03 08:04 | NUR ---
TELE/RN OPENING NOTES RECEIVED PATIENT RESTING IN BED COMFORTABLY ALERT AND ORIENTED X3. WITH TELE MONITOR IN PLACE WITH THE READING OF SINUS VASYL AT 50. WITH HL AT LEFT WRIST GAUGE [address] INTACT AND PATENT. NO SHORTNESS OF BREATH. DENIES ANY PAIN AT THIS TIME. SIDE RAILS UP X 2, CALL ALARM WITH IN REACH.WILL CONTINUE TO MONITOR.
[2019-06-03 08:23] LABS: THYROID STIMULATING HORMONE 1.37 uIU/mL (0.358-3.74)
[2019-06-03] MEDS ORDERED: ASPIRIN 81 MG TAB.CHEW PO SCH (09:00)
[2019-06-03] MEDS ORDERED: CARVEDILOL 6.25 MG TABLET PO SCH (09:00)
[2019-06-03] MEDS: ASPIRIN EC 81 MG TABLET.DR PO SCH (09:12)
[2019-06-03] MEDS: GABAPENTIN 400 MG CAPSULE PO SCH ×2 (09:12→16:18)
[2019-06-03] MEDS: PREGABALIN 25 MG CAPSULE PO SCH ×2 (09:13→20:48)
[2019-06-03] MEDS: DULOXETINE HCL 30 MG CAPSULE.DR PO SCH (09:13)
[2019-06-03] MEDS: CHOLECALCIFEROL 1,000 UNIT TABLET (VIT D3) PO SCH (09:13)
[2019-06-03] MEDS: CARVEDILOL 12.5 MG TABLET PO SCH (09:15)
[2019-06-03] MEDS: FUROSEMIDE 40 MG/4 ML VIAL IV SCH ×3 (09:16→16:17)
[2019-06-03] MEDS: HYDROCODONE/APAP 5/325MG 1 EACH TABLET PO PRN (11:26)
[2019-06-03] MEDS: INSULIN REGULAR, HUMAN 100 UNIT/ML 3 ML VIAL SQ PRN ×3 (12:18→22:47)
[2019-06-03 16:00] VITALS: BP 123/50
[2019-06-03] MEDS ORDERED: INSULIN DEGLUDEC 20 UNIT SQ SCH (18:00)
[2019-06-03] MEDS ORDERED: INSULIN GLARGINE, 100 UNIT/ML CARTRIDGE SQ SCH (18:30)
--- NOTE | 2019-06-03 19:00 | NUR ---
MS /RN CLOSING NOTES PATIENT RESTING IN BED COMFORTABLY. HOB ELEVATED. A/O X3. ABLE TO MAKE NEEEDS KNOWN. ON 02 VIA N/C @ 3LPM, TOLERATING WELL WITH NO SOB NOTED AT THIS TIME. IV SL ON LEFT WRIST G# 22 INTACT, PATENT AND FLUSHES WELL. SAFETY MEASURES KEPT IN PLACE. BED IN LOW LOCKED POSITION WITH SR UP X2. CALL NAVA WITH IN REACH. WILL ENDORSED TO ONLINE MARKETING COORDINATOR NURSE FOR ALLY
--- NOTE | 2019-06-03 19:20 | NUR ---
MS/RN OPENING NOTES: RECEIVED PATIENT RESTING COMFORTABLY IN BED. A/OX3. SPEAKS [place] CITIZEN, UNDERSTANDS AND SPEAKS MINIMAL YORUBA. ON 3L OF OXYGEN VIA NC. NO SOB NOTED, BREATHING EVEN AND UNLABORED. NO S/S OF ACUTE DISTRESS. NO COMPLAINS OF PAIN AT THIS TIME. IV SITE AT THE LEFT WRIST 22G IN PLACE INTACT AND PATENT. DENIES ANY PAIN AT THIS TIME. SAFETY MEASURES IN PLACE, BED IS IN LOW, LOCKED POSITION, SIDE RAILS UP X 2, CALL ALARM WITH IN REACH. WILL CONTINUE TO MONITOR PATIENT ACCORDINGLY.
[2019-06-03 20:00] VITALS: BP 136/53
[2019-06-03] MEDS: INSULIN GLARGINE, 100 UNIT/ML CARTRIDGE SQ SCH (20:03)
[2019-06-03] MEDS ORDERED: Medication Not On Formulary EA (Melatonin 3 MG) PO SCH (22:00)
--- NOTE | 2019-06-03 22:17 | NUR ---
Met with patient, she is alert and pleasant, speaks Ghanaian only. States she lives locally with her son on the first floor apartment. States she ambulates with a cane and semi-independent with adl's . No homehealth reported, she own a cane for mobility. Her pcp is Dr.Miguel Culp. She want to return home when discharge. Addendum: 06/03/19 at 2218 by JONHATHAN JAQUEZ RN Amended: Links added.
[2019-06-04 00:16] LABS: APPEARANCE,URINE CLEAR (CLEAR); BILIRUBIN,URINE NEGATIVE (NEGATIVE); BLOOD, URINE NEGATIVE Ery/uL (NEGATIVE); COLOR,URINE YELLOW (YELLOW); KETONES,URINE NEGATIVE (NEGATIVE); LEUKOCYTE ESTERASE ,URINE TRACE (NEGATIVE); NITRITE, URINE NEGATIVE (NEGATIVE); PROTEIN,URINE NEGATIVE (NEGATIVE); UGLUCOSE NEGATIVE (NEGATIVE); UROBILINOGEN,URINE 0.2 EU/dL (0.2)
[2019-06-04 00:19] LABS: BACTERIA,URINE None seen /HPF (None Seen); EOSINOPHIL,URINE None Seen; RBC,URINE 0-2 /HPF (0-2); SQUAMOUS EPITHELIAL CELL,UR Few /HPF (None Seen); WBC,URINE 0-2 /HPF (0-3)
[2019-06-04 02:15] LABS: CREATININE, URINE 18.3 MG/DL (30.0-125.0); URINE TOTAL PROTEIN 2.7 mg/dL (0-11.9)
[2019-06-04] MEDS: BLOOD SUGAR DIAGNOSTIC 1 EACH STRIP IN SCH ×4 (06:30→21:05)
[2019-06-04] MEDS: INSULIN REGULAR, HUMAN 100 UNIT/ML 3 ML VIAL SQ PRN ×4 (06:31→21:17)
--- NOTE | 2019-06-04 06:45 | NUR ---
MS/RN CLOSING NOTES: PATIENT RESTING COMFORTABLY IN BED. A/OX3. ON 3L OF OXYGEN VIA NC. NO SOB NOTED, BREATHING EVEN AND UNLABORED. NO S/S OF ACUTE DISTRESS. NO COMPLAINS OF PAIN AT THIS TIME. IV SITE AT THE LEFT WRIST 22G IN PLACE INTACT AND PATENT. DENIES ANY PAIN AT THIS TIME. ALL DUE MEDS GIVEN ORDERED. TOLERATED WELL. KEPT PAT WARM AND DRY AT ALL TIMES. ALL NURSING NEEDS MET AND PROVIDED. SAFETY MEASURES KEPT IN PLACE, BED IS IN LOW, LOCKED POSITION, SIDE RAILS UP X 2, CALL ALARM WITH IN REACH. WILL ENDORSE TO DAY SHIFT NURSE FOR ALLY.
[2019-06-04 06:51] LABS: BASOPHILS # (AUTO) 0.1 /CMM (0.0-0.2); BASOPHILS % (AUTO) 0.8 % (0.0-2.0); EOSINOPHILS % (AUTO) 2.3 % (0.0-6.0); HEMATOCRIT 31 % (33-45); HEMOGLOBIN 10.5 g/dL (11.5-14.8); LYMPHOCYTES # (AUTO) 0.7 /CMM (0.8-4.8); LYMPHOCYTES % (AUTO) 10.2 % (20.0-44.0); MEAN CORPUSCULAR HGB CONC 34 g/dl (31.0-36.0); MEAN CORPUSCULAR VOLUME 92 fL (82-100); MONOCYTES # (AUTO) 0.4 /CMM (0.1-1.30); MONOCYTES % (AUTO) 6.4 % (2.0-12.0); NEUTROPHILS # (AUTO) 5.3 /CMM (1.8-8.9); NEUTROPHILS % (AUTO) 80.3 % (43.0-81.0); PLATELET COUNT (AUTO) 125 /CMM (150-450); WHITE BLOOD COUNT (AUTO) 6.6 K/uL (4.3-11.0)
[2019-06-04 07:01] LABS: ALANINE AMINOTRANSFERASE 31 U/L (12-78); ALBUMIN 3.4 g/dL (3.4-5.0); ALKALINE PHOSPHATASE 75 U/L (46-116); ASPARTATE AMINOTRANSFERASE 14 U/L (15-37); BILIRUBIN,TOTAL 0.5 mg/dL (0.2-1.0); CALCIUM, SERUM 8.4 mg/dL (8.5-10.1); CARBON DIOXIDE 28 mmol/L (21-32); CHLORIDE 104 mmol/L (98-107); CREATININE 1.5 mg/dL (0.6-1.3); GLUCOSE 160 mg/dL (74-106); PHOSPHORUS 5.1 mg/dL (2.5-4.9); POTASSIUM 4.7 mmol/L (3.5-5.1); SODIUM SERUM 140 mmol/L (136-145); TOTAL PROTEIN, SERUM 6.6 g/dL (6.4-8.2); UREA NITROGEN, BLOOD 45 mg/dL (7-18)
--- NOTE | 2019-06-04 07:10 | NUR ---
MS RN OPENING NOTE PATIENT IN BED RESTING COMFORTABLY. PATIENT IN NO ACUTE DISTRESS. NO SOB NOTED. PATIENT BREATHING IS EVEN AND UNLABORED. IV ACCESS PATENT AND INTACT. SAFETY PRECAUTIONS IN PLACE. PATIENT BED IS LOCKED AND IN LOWEST POSITION. CALL LIGHT WITHIN REACH. WILL CONTINUE TO MONITOR.
[2019-06-04 07:16] LABS: CREATINE KINASE, TOTAL 69 U/L (26-192); FERRITIN 92 ng/mL (8-388)
[2019-06-04 08:00] VITALS: BP 126/53
[2019-06-04] MEDS ORDERED: INSULIN DEGLUDEC 30 UNIT SQ SCH (09:00)
[2019-06-04] MEDS: DULOXETINE HCL 30 MG CAPSULE.DR PO SCH ×2 (09:33→09:41)
[2019-06-04] MEDS: ASPIRIN EC 81 MG TABLET.DR PO SCH (09:34)
[2019-06-04] MEDS: CHOLECALCIFEROL 1,000 UNIT TABLET (VIT D3) PO SCH (09:34)
[2019-06-04] MEDS: CARVEDILOL 12.5 MG TABLET PO SCH (09:34)
[2019-06-04] MEDS: PREGABALIN 25 MG CAPSULE PO SCH ×2 (09:34→21:04)
[2019-06-04] MEDS: GABAPENTIN 400 MG CAPSULE PO SCH ×2 (09:34→17:41)
[2019-06-04] MEDS: INSULIN GLARGINE, 100 UNIT/ML CARTRIDGE SQ SCH ×2 (09:37→18:46)
--- NOTE | 2019-06-04 09:41 | NUR ---
MS/RN non-admin Patient refused cymbalta at this time.
[2019-06-04 13:19] LABS: OCCULT BLOOD STOOL NEGATIVE (NEGATIVE)
[2019-06-04 16:00] VITALS: BP 117/62
--- NOTE | 2019-06-04 19:40 | NUR ---
MS RN OPENING NOTE RECEIVED PATIENT STANDING AT BEDSIDE, AMBULATING TO RESTROOM. A/OX3. TOLERATING ROOM AIR. PER REPORT PATIENT IS ON OXYGEN 2L/IN VIA NASAL CANULA ON AND OFF. RESPIRATION ARE EVEN AND UNLABORED. NO S/S SOB NOTED AT THIS TIME. DENIES PAIN AT THIS TIME. IN NO APPARENT DISTRESS. IV ACCESS IN LEFT WRIST#22 PATENT AND SALINE LOCKED. EDUCATED PATIENT THAT WE WILL NEED ANOTHER STOOL SAMPLE FOR OB STOOL X2 AND X3. BED IS LOW AND LOCKED, HOB ELEVATED IN SEMI FOWLERS, SIDE RIALS UP X2. CALL LIGHT WITHIN REACH. WILL CONTINUE TO MONITOR.
--- NOTE | 2019-06-04 19:44 | NUR ---
MS RN CLOSING NOTE PATIENT IN BED RESTING COMFORTABLY. PATIENT IN NO ACUTE DISTRESS. NO SOB NOTED. PATIENT BREATHING IS EVEN AND UNLABORED. PATIENT KEPT CLEAN, DRY, AND COMFORTABLE THROUGHOUT SHIFT. IV ACCESS PATENT AND INTACT. EXTREMITIES OFFLOADED ON PILLOWS. TURNED AND REPOSITIONED Q2H. SAFETY PRECAUTIONS IN PLACE. PATIENT BED IS LOCKED AND IN LOWEST POSITION. CALL LIGHT WITHIN REACH. WILL ENDORSE CARE TO PM SHIFT FOR ALLY.
[2019-06-04 20:00] VITALS: BP 132/50
[2019-06-04] MEDS: ATORVASTATIN 10 MG TABLET PO SCH (21:04)
[2019-06-05] MEDS: HYDROCODONE/APAP 5/325MG 1 EACH TABLET PO PRN ×2 (00:45→09:44)
[2019-06-05] MEDS: BLOOD SUGAR DIAGNOSTIC 1 EACH STRIP IN SCH ×4 (06:32→21:31)
[2019-06-05] MEDS: INSULIN REGULAR, HUMAN 100 UNIT/ML 3 ML VIAL SQ PRN ×3 (06:35→16:50)
[2019-06-05] MEDS ORDERED: CARVEDILOL 12.5 MG TABLET PO SCH (07:00)
--- NOTE | 2019-06-05 07:14 | NUR ---
MS RN OPENING NOTE PATIENT RESTING IN BED. A/OX3. ON OXYGEN 2L/MIN VIA NASAL CANULA. RESPIRATION ARE EVEN AND UNLABORED. NO SOB NOTED. MANAGED EPISODE OF CHEST PAIN 8 WITH NORCO, CHEST PAIN D/T PATIENT EATING A BANANA AND DRINKING A WHOLE MILK CARTON BEFORE LAYING DOWN. NO DISTRESS NOTED THROUGHOUT SHIFT. IV ACCESS MAINTAINED IN LEFT WRIST#22 PATENT AND SALINE LOCKED. NO BOWEL MOVEMENT WAS ABLE TO BE PASSED AT THIS TIME. BED IS LOW AND LOCKED, HOB ELEVATED IN SEMI FOWLERS, SIDE RIALS UP X2. CALL LIGHT WITHIN REACH. WILL ENDORSE TO NEXT SHIFT.
--- NOTE | 2019-06-05 07:41 | NUR ---
MS/RN OPENING NOTE Patient is resting in bed, A/O x4, showing no signs of acute distress or SOB, saturating >95% on RA, has O2 2L NC prn. IV line is clean and intact s/l showing no signs of infiltration. Bed is in lowest position, side rails x2 in upright position, call light is within reach and patient is aware of how to call for assistance when needed. Will continue with plan of care.
[2019-06-05 08:00] VITALS: BP 147/64
[2019-06-05] MEDS: FUROSEMIDE 40 MG/4 ML VIAL IV SCH ×3 (08:39→16:01)
[2019-06-05] MEDS: CHOLECALCIFEROL 1,000 UNIT TABLET (VIT D3) PO SCH (08:39)
[2019-06-05] MEDS: GABAPENTIN 400 MG CAPSULE PO SCH ×2 (08:39→16:01)
[2019-06-05] MEDS: ASPIRIN EC 81 MG TABLET.DR PO SCH (08:39)
[2019-06-05] MEDS: CARVEDILOL 12.5 MG TABLET PO SCH ×2 (08:39→16:24)
[2019-06-05] MEDS: PREGABALIN 25 MG CAPSULE PO SCH ×2 (08:49→21:30)
[2019-06-05] MEDS: INSULIN GLARGINE, 100 UNIT/ML CARTRIDGE SQ SCH ×2 (08:51→17:08)
[2019-06-05] MEDS ORDERED: Dulaglutide (Trulicity) 0.75 MG SQ SCH (09:00)
[2019-06-05 09:08] LABS: BASOPHILS % (AUTO) 0.7 % (0.0-2.0); EOSINOPHILS % (AUTO) 2.2 % (0.0-6.0); HEMATOCRIT 32 % (33-45); HEMOGLOBIN 10.6 g/dL (11.5-14.8); LYMPHOCYTES # (AUTO) 0.9 /CMM (0.8-4.8); LYMPHOCYTES % (AUTO) 14.4 % (20.0-44.0); MEAN CORPUSCULAR HGB CONC 34 g/dl (31.0-36.0); MEAN CORPUSCULAR VOLUME 92 fL (82-100); MONOCYTES # (AUTO) 0.4 /CMM (0.1-1.30); MONOCYTES % (AUTO) 6.9 % (2.0-12.0); NEUTROPHILS # (AUTO) 4.6 /CMM (1.8-8.9); NEUTROPHILS % (AUTO) 75.8 % (43.0-81.0); PLATELET COUNT (AUTO) 130 /CMM (150-450); RED BLOOD CELL COUNT(AUTO) 3.43 MIL/uL (4.0-5.2)
[2019-06-05 09:21] LABS: CALCIUM, SERUM 8.6 mg/dL (8.5-10.1); CARBON DIOXIDE 29 mmol/L (21-32); CHLORIDE 103 mmol/L (98-107); CREATININE 1.4 mg/dL (0.6-1.3); GLUCOSE 148 mg/dL (74-106); POTASSIUM 4.8 mmol/L (3.5-5.1); SODIUM SERUM 139 mmol/L (136-145); UREA NITROGEN, BLOOD 46 mg/dL (7-18)
[2019-06-05 09:27] LABS: ALANINE AMINOTRANSFERASE 37 U/L (12-78); ALBUMIN 3.5 g/dL (3.4-5.0); ALKALINE PHOSPHATASE 79 U/L (46-116); ASPARTATE AMINOTRANSFERASE 14 U/L (15-37); BILIRUBIN,TOTAL 0.6 mg/dL (0.2-1.0); MAGNESIUM 2.1 mg/dL (1.8-2.4); PHOSPHORUS 4.4 mg/dL (2.5-4.9); TOTAL PROTEIN, SERUM 6.9 g/dL (6.4-8.2)
[2019-06-05 16:00] VITALS: BP 132/57
--- NOTE | 2019-06-05 19:49 | NUR ---
MS RN OPENING NOTE RECEIVED PATIENT SITTING AT THE EDGE OF BED. A/OX3. ON OXYGEN 4L/IN VIA NASAL CANULA. RESPIRATION ARE EVEN AND UNLABORED. NO S/S SOB NOTED AT THIS TIME. DENIES PAIN AT THIS TIME. IN NO APPARENT DISTRESS. IV ACCESS IN LEFT WRIST#22 PATENT AND SALINE LOCKED. EDUCATED PATIENT THAT MILK OF MAGNESIA THAT DAY SHIFT NURSE GAVE WILL HELP WITH COLLECTION OF STOOL SAMPLE FOR OB STOOL X2 AND X3. BED IS LOW AND LOCKED, HOB ELEVATED IN SEMI FOWLERS, SIDE RIALS UP X2. CALL LIGHT WITHIN REACH. WILL CONTINUE TO MONITOR.
[2019-06-05 20:00] VITALS: BP 152/68
[2019-06-05 21:22] VITALS: BP 152/68
[2019-06-05] MEDS: ATORVASTATIN 10 MG TABLET PO SCH (21:31)
--- NOTE | 2019-06-05 21:43 | NUR ---
MS RN NOTE 2203 ACCUCHECK READS BS 142. INFORMED PATIENT I WILL PROVIDE INSULIN COVERAGE, SHE REFUSED. EDUCATE ON RISK AND BENEFITS, SHE STILL REFUSED. NOTED.
[2019-06-06] MEDS: BLOOD SUGAR DIAGNOSTIC 1 EACH STRIP IN SCH ×4 (06:19→21:42)
--- NOTE | 2019-06-06 06:36 | NUR ---
MS RN CLOSING NOTE PATIENT RESTING IN BED. A/OX3. ON OXYGEN 4L/MIN VIA NASAL CANULA. RESPIRATION ARE EVEN AND UNLABORED. NO SOB NOTED. NO C/O PAIN THROUGHOUT SHIFT. NO DISTRESS NOTED. IV ACCESS MAINTAINED IN LEFT WRIST#22 PATENT AND SALINE LOCKED. NO BOWEL MOVEMENT WAS ABLE TO BE PASSED. BED REMAINS LOW AND LOCKED, HOB ELEVATED IN SEMI FOWLERS, SIDE RIALS UP X2. CALL LIGHT WITHIN REACH. WILL ENDORSE TO NEXT SHIFT.
[2019-06-06 07:26] LABS: BASOPHILS % (AUTO) 0.5 % (0.0-2.0); EOSINOPHILS % (AUTO) 2.4 % (0.0-6.0); HEMATOCRIT 31 % (33-45); HEMOGLOBIN 10.6 g/dL (11.5-14.8); LYMPHOCYTES # (AUTO) 0.8 /CMM (0.8-4.8); MEAN CORPUSCULAR HGB CONC 34 g/dl (31.0-36.0); MEAN CORPUSCULAR VOLUME 91 fL (82-100); MONOCYTES # (AUTO) 0.6 /CMM (0.1-1.30); MONOCYTES % (AUTO) 10.2 % (2.0-12.0); NEUTROPHILS # (AUTO) 4.2 /CMM (1.8-8.9); NEUTROPHILS % (AUTO) 72.9 % (43.0-81.0); PLATELET COUNT (AUTO) 131 /CMM (150-450); WHITE BLOOD COUNT (AUTO) 5.8 K/uL (4.3-11.0)
[2019-06-06 07:39] LABS: ALANINE AMINOTRANSFERASE 30 U/L (12-78); ALBUMIN 3.4 g/dL (3.4-5.0); ALKALINE PHOSPHATASE 74 U/L (46-116); ASPARTATE AMINOTRANSFERASE 10 U/L (15-37); BILIRUBIN,TOTAL 0.7 mg/dL (0.2-1.0); CALCIUM, SERUM 8.3 mg/dL (8.5-10.1); CARBON DIOXIDE 33 mmol/L (21-32); CHLORIDE 103 mmol/L (98-107); CREATININE 1.4 mg/dL (0.6-1.3); GLUCOSE 83 mg/dL (74-106); MAGNESIUM 2.1 mg/dL (1.8-2.4); POTASSIUM 4.1 mmol/L (3.5-5.1); SODIUM SERUM 141 mmol/L (136-145); TOTAL PROTEIN, SERUM 6.7 g/dL (6.4-8.2); UREA NITROGEN, BLOOD 43 mg/dL (7-18)
--- NOTE | 2019-06-06 07:59 | NUR ---
MS RN OPENING NOTES RECEIVED PATIENT AWAKE, A/O X3. PATIENT ON OXYGEN THERAPY AT 4 LMP VIA NASAL CANULA. BREATHING EVEN AND UNLABORED WITH NO S/S OF ACUTE RESPIRATORY DISTRESS NOTED AT THIS TIME. PATIENT DENIES PAIN AT THIS MOMENT. L WRIST GAUGE # 22 PRESENT AND INTACT, FLUSHING WELL. BILATERAL DISCOLORATION NOTED BILATERALLY. SAFETY PRECAUTIONS IN PLACE: BED IN LOW POSITION AND LOCKED, RAILS UP X 2, CALL LIGHT WITHIN REACH. WILL CONTINUE TO MONITOR PATIENT.
[2019-06-06 08:00] VITALS: BP 151/54
[2019-06-06] MEDS: CHOLECALCIFEROL 1,000 UNIT TABLET (VIT D3) PO SCH (08:41)
[2019-06-06] MEDS: PREGABALIN 25 MG CAPSULE PO SCH ×2 (08:41→21:42)
[2019-06-06] MEDS: GABAPENTIN 400 MG CAPSULE PO SCH ×2 (08:43→18:14)
[2019-06-06] MEDS: ASPIRIN EC 81 MG TABLET.DR PO SCH (08:43)
[2019-06-06] MEDS: DULOXETINE HCL 30 MG CAPSULE.DR PO SCH (08:46)
[2019-06-06] MEDS: INSULIN GLARGINE, 100 UNIT/ML CARTRIDGE SQ SCH ×2 (08:55→17:38)
--- NOTE | 2019-06-06 08:57 | NUR ---
MS RN NOTES LANTUS NON-ADMINISTERED THIS AM DUE TO LOW BS OF 83 THIS MORNING
[2019-06-06] MEDS ORDERED: BUMETANIDE INJ 8 MG in IV NS 0.9% 48 ML IV ONE (09:30)
[2019-06-06] MEDS: CARVEDILOL 12.5 MG TABLET PO SCH ×2 (09:55→18:00)
[2019-06-06] MEDS: INSULIN REGULAR, HUMAN 100 UNIT/ML 3 ML VIAL SQ PRN ×3 (14:45→23:10)
[2019-06-06 16:00] VITALS: BP 121/50
[2019-06-06] MEDS: IPRATROPIUM NEB FS 0.5 MG/2.5 ML AMPUL.NEB NEB SCH ×2 (16:52→20:18)
[2019-06-06 17:10] LABS: ABG BASE EXCESS 7.6 mmol/L; ABG OXYGEN SATURATION 93.2 % (92.0-98.5); ABG PH 7.387 (7.350-7.450); ABG PO2 70.7 mmHg (75.0-100.0); AaDO2 96.9 mmHg; COHb 0.8 % (0.5-1.5); MetHb 0.1 % (0.0-1.5); O2Hb 92.4 % (94.0-97.0); SITE, ABG Right Radial; VENT MODE, BG NC 4L 33%
--- NOTE | 2019-06-06 19:05 | NUR ---
MS RN CLOSING NOTES PATIENT AT THIS MOMENT IN BED, AWAKE, A/O X4. PATIENT ON OXYGEN THERAPY 4 LPM. BREATHING EVENLY WITH NO S/S OF DISTRESS OR SOB AT THIS TIME. L WRIST GAUGE # 22 PRESENT, INTACT AND PATENT. SAFETY PRECAUTIONS IN PLACE: BED IN LOW POSITION AND LOCKED, RAILS UP X 2, CALL LIGHT WITHIN REACH. WILL ENDORSE TO THE INTERACTIVE MULTIMEDIA DESIGNER NURSE.
--- NOTE | 2019-06-06 19:45 | NUR ---
MS RN NOTE: PATIENT RESTING IN BED, NO ACUTE DISTRESS NOTED. BREATHING EVEN AND UNLABORED, NO SOB NOTED. IV TO LEFT WRIST IN PLACE. BED LOCKED AND IN LOWEST POSITION, CALL LIGHT IN REACH. WILL CONTINUE TO MONITOR.
[2019-06-06 20:00] VITALS: BP 151/58
[2019-06-06] MEDS: ATORVASTATIN 10 MG TABLET PO SCH (21:42)
--- NOTE | 2019-06-06 22:45 | NUR ---
MS RN NOTE: PATIENT BLOOD SUGAR LEVEL 214MG/DL, PATIENT TO RECEIVE 4 UNITS OF INSULIN PER SLIDING SCALE. NO S/S OF HYPER/HYPOGLYCEMIA NOTED, WILL CONTINUE TO MONITOR.
[2019-06-07] MEDS: IPRATROPIUM NEB FS 0.5 MG/2.5 ML AMPUL.NEB NEB SCH ×7 (00:01→23:30)
--- NOTE | 2019-06-07 06:45 | NUR ---
MS RN NOTE: PATIENT RESTING IN BED, NO ACUTE DISTRESS NOTED. BREATHING EVEN AND UNLABORED, NO SOB NOTED. IV TO LEFT FOREARM IN PLACE. PATIENT BLOOD SUGAR LEVEL 144MG/DL, PATIENT REFUSES INSULIN PER SLIDING SCALE. EXPLAINS RISK AND BENEFITS, BUT CONTINUE TO REFUSE. NO S/S OF HYPER/HYPOGLYCEMIA NOTED. BED LOCKED AND IN LOWEST POSITION, CALL LIGHT IN REACH. WILL ENDORSE TO DAY NURSE TO CONTINUE WITH PLAN OF CARE.
[2019-06-07] MEDS: BLOOD SUGAR DIAGNOSTIC 1 EACH STRIP IN SCH ×4 (06:54→21:46)
--- NOTE | 2019-06-07 07:54 | NUR ---
MS/RN Patient received Patient received from analysis engineer. A/O X3, vital signs stable, no shortness of breath noted. Denies any pain or discomfort. Bed in low setting, side rails X2 in upright position. Call light within reach, aware of how to use to call for assistance. Will continue to monitor and ensure safety.
[2019-06-07 07:57] LABS: BASOPHILS % (AUTO) 0.7 % (0.0-2.0); EOSINOPHILS % (AUTO) 3.2 % (0.0-6.0); HEMATOCRIT 32 % (33-45); HEMOGLOBIN 10.7 g/dL (11.5-14.8); LYMPHOCYTES % (AUTO) 17.5 % (20.0-44.0); MEAN CORPUSCULAR HGB CONC 34 g/dl (31.0-36.0); MEAN CORPUSCULAR VOLUME 92 fL (82-100); MONOCYTES # (AUTO) 0.5 /CMM (0.1-1.30); MONOCYTES % (AUTO) 9.4 % (2.0-12.0); NEUTROPHILS % (AUTO) 69.2 % (43.0-81.0); PLATELET COUNT (AUTO) 137 /CMM (150-450); RED BLOOD CELL COUNT(AUTO) 3.46 MIL/uL (4.0-5.2); WHITE BLOOD COUNT (AUTO) 5.7 K/uL (4.3-11.0)
[2019-06-07 08:00] VITALS: BP 150/60
[2019-06-07 08:06] LABS: *SPE A/G RATIO 0.8 (0.7-1.7); *SPE ALBUMIN 2.9 g/dL (2.9-4.4); *SPE ALPHA-1-GLOBULIN 0.2 g/dL (0.0-0.4); *SPE ALPHA-2-GLOBULIN 0.7 g/dL (0.4-1.0); *SPE BETA GLOBULIN 1.2 g/dL (0.7-1.3); *SPE GLOBULIN, TOTAL 3.5 g/dL (2.2-3.9); *SPE M-SPIKE Not Observed g/dL (Not Observed); *SPEGAMMA GLOBULIN 1.4 g/dL (0.4-1.8)
[2019-06-07] MEDS: CHOLECALCIFEROL 1,000 UNIT TABLET (VIT D3) PO SCH (08:23)
[2019-06-07] MEDS: PREGABALIN 25 MG CAPSULE PO SCH ×2 (08:23→21:46)
[2019-06-07] MEDS: ASPIRIN EC 81 MG TABLET.DR PO SCH (08:23)
[2019-06-07] MEDS: DULOXETINE HCL 30 MG CAPSULE.DR PO SCH (08:24)
[2019-06-07] MEDS: GABAPENTIN 400 MG CAPSULE PO SCH ×2 (08:24→17:34)
[2019-06-07] MEDS: CARVEDILOL 12.5 MG TABLET PO SCH ×2 (08:24→17:34)
[2019-06-07] MEDS: INSULIN GLARGINE, 100 UNIT/ML CARTRIDGE SQ SCH ×2 (08:24→17:37)
[2019-06-07 08:26] LABS: ALBUMIN 3.3 g/dL (3.4-5.0); BILIRUBIN,TOTAL 0.7 mg/dL (0.2-1.0); CALCIUM, SERUM 8.4 mg/dL (8.5-10.1); CREATININE 1.3 mg/dL (0.6-1.3); PHOSPHORUS 3.5 mg/dL (2.5-4.9); TOTAL PROTEIN, SERUM 6.7 g/dL (6.4-8.2)
--- NOTE | 2019-06-07 08:45 | NUR ---
MS/RN S/B Dr Pablo Seen by Dr Pablo - for possible discharge to home later today.
--- NOTE | 2019-06-07 10:26 | NUR ---
MS/RN S/B Dr Gabriel Seen by MD - diuretics to be changed to oral.
[2019-06-07] MEDS: FUROSEMIDE 40 MG TABLET PO SCH (10:27)
[2019-06-07 12:06] LABS: PTH, INTACT 69 pg/mL (15-65)
[2019-06-07] MEDS: INSULIN REGULAR, HUMAN 100 UNIT/ML 3 ML VIAL SQ PRN ×3 (12:38→21:51)
--- NOTE | 2019-06-07 12:54 | NUR ---
MS/RN Saturation Room air saturation at rest 88%.
--- NOTE | 2019-06-07 14:00 | NUR ---
MS/RN Exit care Exit care prepared as patient for possible discharge to home today with son. Will need home health and home oxygen prior to discharge.
--- NOTE | 2019-06-07 14:36 | NUR ---
MS/casting machine set up operator plan Received call from Kiara protective services case worker, stated that she was working with insurance company to find a home health and oxygen supply company to arrange services so that patient could be discharged to home today.
[2019-06-07 16:00] VITALS: BP 130/65
--- NOTE | 2019-06-07 16:00 | NUR ---
MS/RN DC Held Discharge held until tomorrow, equipment will be delivered tomorrow at 10am.
--- NOTE | 2019-06-07 17:45 | NUR ---
MS/RN S/B Dr Tobin Seen by Dr Tobin - nocturnal bipap to be initiated.
--- NOTE | 2019-06-07 17:46 | NUR ---
MS/RN Blood sugar Blood sugar at 5p - 178, coverage administered as ordered.
--- NOTE | 2019-06-07 18:07 | NUR ---
MS/RN End note Patient remains in stable condition, informed that discharge held until tomorrow morning. All needs addressed, call light within reach, will continue to monitor and ensure safety
--- NOTE | 2019-06-07 19:32 | NUR ---
MS CLOTH BEAMER INITIAL NOTES Received report from am nurse Macy and saw patient lying in bed with eyes closed but arouses to touch, denies any pain or any discomfort. heplock patent and intact. kept her warm and comfortable at all times. encourage her to use the call light if she needs help or needs assistance. bed in low and lock in position with side rails x2 up . will continue monitoring.
[2019-06-07 20:00] VITALS: BP_SYST 115; BP_SYST 125; BP_DIAS 54; BP_DIAS 89
[2019-06-07] MEDS: ATORVASTATIN 10 MG TABLET PO SCH (21:46)
--- NOTE | 2019-06-07 21:53 | NUR ---
ms nilda notes Blood sugar checked done 240, gave 4 units of insulin dexter SQ as ordered on different site. no signs of hyper glycemia noted. routine meds also given . snacks also served. will continue monitoring. place call light at reach.
[2019-06-08] MEDS: IPRATROPIUM NEB FS 0.5 MG/2.5 ML AMPUL.NEB NEB SCH ×3 (03:30→10:54)
--- NOTE | 2019-06-08 07:30 | NUR ---
RN MS NOTES PT AWAKE, SITTING IN HER CHAIR, ALERT AND ORIENTED, NO COMPLAINT OF PAIN, NOT IN DISTRESS, ON O2 AT 2LPM VIA NASAL CANULA, NO SOB, CALL LIGHT WITHIN REACH, NEEDS ATTENDED.
--- NOTE | 2019-06-08 07:52 | NUR ---
,s manager clinical closing notes pt awake and alert sitting in the chair while wacthing TV at this time. denies any pain or any discomfort. stable dexter the night and slept well. kept her warm and comfortable at all times. pt is aware that she's going home today just waiting for her o2 tank at home arrange by home health nurse. endorse to am nurse for continuity of care. place call light at reach.
[2019-06-08] MEDS ORDERED: FURO40TA5 PO (08:39)
[2019-06-08] MEDS: INSULIN GLARGINE, 100 UNIT/ML CARTRIDGE SQ SCH (09:00)
[2019-06-08 10:06] VITALS: BP 146/49
[2019-06-08] MEDS: CHOLECALCIFEROL 1,000 UNIT TABLET (VIT D3) PO SCH (10:06)
[2019-06-08] MEDS: DULOXETINE HCL 30 MG CAPSULE.DR PO SCH (10:06)
[2019-06-08] MEDS: ASPIRIN EC 81 MG TABLET.DR PO SCH (10:06)
[2019-06-08] MEDS: FUROSEMIDE 40 MG TABLET PO SCH (10:06)
[2019-06-08] MEDS: CARVEDILOL 12.5 MG TABLET PO SCH (10:06)
[2019-06-08] MEDS: GABAPENTIN 400 MG CAPSULE PO SCH (10:06)
[2019-06-08] MEDS: PREGABALIN 25 MG CAPSULE PO SCH (10:07)
[2019-06-08] MEDS: BLOOD SUGAR DIAGNOSTIC 1 EACH STRIP IN SCH ×2 (10:13→13:28)
[2019-06-08] MEDS: INSULIN REGULAR, HUMAN 100 UNIT/ML 3 ML VIAL SQ PRN (13:11)
--- NOTE | 2019-06-08 13:33 | NUR ---
RN MS NOTES PT AWAKE, SITTING IN HER BED, ALERT AND ORIENTED, NO COMPLAINT OF PAIN, NO SOB, ON O2 AT 2LPM VIA NASAL CANULA, SEEN BY DR. ROCHA, DISCHARGE ORDER GIVEN, DISCHARGE AND MEDICATION INSTRUCTIONS PROVIDED TO PT AND SON, VERBALIZED UNDERSTANDING, PER SON, O2 CONCENTRATOR WAS DELIVERED TO THEIR HOUSE LAST NIGHT, SKIN ASSESSMENT DONE, BELONGINGS ACCOUNTED FOR, INSTRUCTED PT'S SON ABOUT THE O2 TANK THAT THEY WILL BRING HOME, ASSISTED BY PLATE DRILLER TO HOSPITAL LOBBY VIA WHEELCHAIR, LEFT IN STABLE CONDITION.
== END 2019-06-08 13:30 | disposition home health service (06) | DRG 291 ==
LOC: ER 01:36 → TELE 04:36 → MED 08:57
PROVIDERS: ADMIT Internal Medicine; ATTEND Internal Medicine
DX: I13.0 Hypertensive heart and chronic kidney disease with heart failure and stage 1 through stage 4 chronic kidney disease, or unspecified chronic kidney disease (principal); I50.33 Acute on chronic diastolic (congestive) heart failure; J96.01 Acute respiratory failure with hypoxia; N17.0 Acute kidney failure with tubular necrosis; I25.10 Atherosclerotic heart disease of native coronary artery without angina pectoris; D63.8 Anemia in other chronic diseases classified elsewhere; E11.22 Type 2 diabetes mellitus with diabetic chronic kidney disease; E78.5 Hyperlipidemia, unspecified; E11.40 Type 2 diabetes mellitus with diabetic neuropathy, unspecified; N18.2 Chronic kidney disease, stage 2 (mild); Z79.4 Long term (current) use of insulin; Z79.84 Long term (current) use of oral hypoglycemic drugs; Z79.82 Long term (current) use of aspirin; Z79.899 Other long term (current) drug therapy; M19.90 Unspecified osteoarthritis, unspecified site; Z96.659 Presence of unspecified artificial knee joint; G47.33 Obstructive sleep apnea (adult) (pediatric)
CPT/HCPCS: 36415; 36600; 71045-TC; 80048-TC; 80053-TC; 80061-TC; 81000-TC; 82272-TC; 82550-TC; 82570-TC; 82728-TC; 82803-TC; 82962-TC; 83540-TC; 83735-TC; 83880; 83970; 84100-TC; 84155; 84155-TC; 84165; 84300-TC; 84439-TC; 84443-TC; 84484-TC; 85025-TC; 87081-TC; 93307-TC; 93970-TC; 94799-TC; 97116-TC; 97530-TC; A4216; G0378; J1815; J1940; J3490; J7050

== ENCOUNTER 2020-05-06 18:30 | Inpatient (IN) | payer MEDICARE, OTHER ==
[~2020-05-06] VITALS: Ht 157.5 cm; Wt 91.4 kg
[~2020-05-06 18:30] MED LIST changes: -CHLO25TA2 PO; +FURO40TA5 PO; +MELA3TAB41 PO; -MELA3TAB63 PO
--- NOTE | 2020-05-06 19:45 | NUR ---
blood drawn and collected, sent to the lab.
[2020-05-06 20:07] LABS: BASOPHILS % (AUTO) 0.8 % (0.0-2.0); EOSINOPHILS % (AUTO) 0.3 % (0.0-6.0); HEMATOCRIT 41 % (33-45); HEMOGLOBIN 13.6 g/dL (11.5-14.8); LYMPHOCYTES # (AUTO) 0.7 /CMM (0.8-4.8); LYMPHOCYTES % (AUTO) 24.3 % (20.0-44.0); MEAN CORPUSCULAR HGB CONC 33 g/dl (31.0-36.0); MEAN CORPUSCULAR VOLUME 92 fL (82-100); MONOCYTES # (AUTO) 0.3 /CMM (0.1-1.30); NEUTROPHILS # (AUTO) 1.9 /CMM (1.8-8.9); NEUTROPHILS % (AUTO) 63.6 % (43.0-81.0); PLATELET COUNT (AUTO) 119 /CMM (150-450); RED BLOOD CELL COUNT(AUTO) 4.46 MIL/uL (4.0-5.2)
[2020-05-06 20:12] LABS: CALCIUM, SERUM 8.5 mg/dL (8.5-10.1); CARBON DIOXIDE 27 mmol/L (21-32); CHLORIDE 102 mmol/L (98-107); CREATININE 1.4 mg/dL (0.6-1.3); GLUCOSE 229 mg/dL (74-106); POTASSIUM 4.4 mmol/L (3.5-5.1); SODIUM SERUM 136 mmol/L (136-145); UREA NITROGEN, BLOOD 26 mg/dL (7-18)
[2020-05-06 20:18] LABS: ALANINE AMINOTRANSFERASE 25 U/L (12-78); ASPARTATE AMINOTRANSFERASE 31 U/L (15-37); BILIRUBIN,DIRECT 0.2 mg/dL (0.0-0.2); BILIRUBIN,TOTAL 0.7 mg/dL (0.2-1.0); TOTAL PROTEIN, SERUM 7.1 g/dL (6.4-8.2)
[2020-05-06 20:19] LABS: ALKALINE PHOSPHATASE 1 U/L (46-116)
--- NOTE | 2020-05-06 20:31 | NUR ---
CALL FROM LAB. RAPID COVID NEGATIVE.
[2020-05-06] MEDS ORDERED: ACETAMINOPHEN 325 MG TABLET ONE (20:32)
--- NOTE | 2020-05-06 20:54 | NUR ---
URINE COLLECTED AND SENT TO LAB.
[2020-05-06] MEDS ORDERED: ACETAMINOPHEN 325 MG TABLET PO ONE (21:00)
[2020-05-06 21:14] LABS: BILIRUBIN,URINE NEGATIVE (NEGATIVE); BLOOD, URINE SMALL Ery/uL (NEGATIVE); COLOR,URINE YELLOW (YELLOW); LEUKOCYTE ESTERASE ,URINE TRACE (NEGATIVE); NITRITE, URINE NEGATIVE (NEGATIVE); PROTEIN,URINE >=300 mg/dl (NEGATIVE); UGLUCOSE NEGATIVE (NEGATIVE); UROBILINOGEN,URINE 0.2 EU/dL (0.2)
[2020-05-06 21:24] LABS: BACTERIA,URINE Many /HPF (None Seen); SQUAMOUS EPITHELIAL CELL,UR Few /HPF (None Seen)
[2020-05-06] MEDS ORDERED: Medication Not On Formulary EA (Dulaglutide (Trulicity) 0.75 MG) SQ SCH (21:30)
[2020-05-06] MEDS ORDERED: FUROSEMIDE 20 MG/2 ML VIAL IV ONE (21:30)
[2020-05-06] MEDS ORDERED: LABETALOL 20 MG/4 ML VIAL IV PRN (21:30)
[2020-05-06] MEDS ORDERED: ONDANSETRON HCL/PF 4 MG/2 ML VIAL IVP PRN (21:30)
[2020-05-06] MEDS ORDERED: DEXTROSE 50%-WATER 50 ML DISP.SYRIN IV PRN (21:30)
[2020-05-06] MEDS ORDERED: hydrALAZINE HCL IV 20 MG VIAL IV ONE (21:30)
[2020-05-06] MEDS ORDERED: ACETAMINOPHEN 650 MG/SUPP.RECT RC PRN (21:30)
[2020-05-06] MEDS: BLOOD SUGAR DIAGNOSTIC 1 EACH STRIP VI SCH (21:32)
[2020-05-06] MEDS ORDERED: Medication Not On Formulary EA (Melatonin 3 MG) PO SCH (22:00)
--- NOTE | 2020-05-06 22:03 | NUR ---
called after hour pharmacy to verify the admiting orders
[2020-05-06] MEDS ORDERED: FUROSEMIDE 20 MG/2 ML VIAL ONE (22:24)
[2020-05-06 23:10] LABS: C-REACTIVE PROTEIN 4.1 mg/dL (0.0-0.9)
[2020-05-07] MEDS: GABAPENTIN 400 MG CAPSULE PO SCH ×3 (00:32→21:44)
[2020-05-07] MEDS ORDERED: AZITHROMYCIN 250 MG TABLET PO SCH (01:02)
[2020-05-07] MEDS ORDERED: GABAPENTIN 300 MG CAPSULE ONE (01:25)
[2020-05-07] MEDS ORDERED: CEFTRIAXONE 1GM BAG (ER ONLY) 50 ML IV ONE (01:25)
[2020-05-07] MEDS ORDERED: GABAPENTIN 100 MG CAPSULE ONE (01:25)
[2020-05-07] MEDS ORDERED: AZITHROMYCIN 250 MG TABLET ONE (01:26)
[2020-05-07] MEDS: CEFTRIAXONE 1 G in IV D5W 50 ML IV SCH (01:35)
--- NOTE | 2020-05-07 01:58 | NUR ---
PATIENT AMBULATED TO THE RESTROOM WITH A STEADY GAIT.
[2020-05-07 05:18] LABS: BASOPHILS % (AUTO) 0.1 % (0.0-2.0); EOSINOPHILS % (AUTO) 0.9 % (0.0-6.0); HEMATOCRIT 39 % (33-45); LYMPHOCYTES # (AUTO) 0.8 /CMM (0.8-4.8); LYMPHOCYTES % (AUTO) 30.1 % (20.0-44.0); MEAN CORPUSCULAR HGB CONC 33 g/dl (31.0-36.0); MEAN CORPUSCULAR VOLUME 90 fL (82-100); MONOCYTES # (AUTO) 0.4 /CMM (0.1-1.30); MONOCYTES % (AUTO) 14.3 % (2.0-12.0); NEUTROPHILS # (AUTO) 1.4 /CMM (1.8-8.9); NEUTROPHILS % (AUTO) 54.6 % (43.0-81.0); PLATELET COUNT (AUTO) 117 /CMM (150-450); RED BLOOD CELL COUNT(AUTO) 4.35 MIL/uL (4.0-5.2); WHITE BLOOD COUNT (AUTO) 2.6 K/uL (4.3-11.0)
--- NOTE | 2020-05-07 05:34 | NUR ---
PATIENT AMBULATED T0 THE RESTROOM WITH A STEADY GAIT.
[2020-05-07 05:37] LABS: ALBUMIN 2.6 g/dL (3.4-5.0); BILIRUBIN,TOTAL 0.5 mg/dL (0.2-1.0); CALCIUM, SERUM 7.9 mg/dL (8.5-10.1); CREATININE 1.3 mg/dL (0.6-1.3); MAGNESIUM 1.9 mg/dL (1.8-2.4); POTASSIUM 3.2 mmol/L (3.5-5.1); TOTAL PROTEIN, SERUM 6.4 g/dL (6.4-8.2)
[2020-05-07 05:50] LABS: THYROID STIMULATING HORMONE 0.398 uIU/mL (0.358-3.74)
[2020-05-07] MEDS ORDERED: METFORMIN 500 MG TABLET PO SCH (08:00)
[2020-05-07] MEDS: BLOOD SUGAR DIAGNOSTIC 1 EACH STRIP VI SCH ×4 (08:30→22:15)
--- NOTE | 2020-05-07 08:37 | NUR ---
bs checked 160
--- NOTE | 2020-05-07 08:40 | NUR ---
provided pt with breakfast
[2020-05-07] MEDS: ASPIRIN EC 81 MG TABLET.DR PO SCH (08:46)
[2020-05-07] MEDS: FUROSEMIDE 40 MG/4 ML VIAL IV SCH ×2 (08:46→17:00)
[2020-05-07] MEDS: POTASSIUM CHLORIDE 10 MEQ TABLET.SA PO SCH (08:47)
[2020-05-07] MEDS: LOSARTAN POTASSIUM 50 MG TABLET PO SCH (08:47)
[2020-05-07] MEDS: CHOLECALCIFEROL 1,000 UNIT TABLET (VIT D3) PO SCH (08:47)
[2020-05-07] MEDS: DULOXETINE HCL 30 MG CAPSULE.DR PO SCH (08:47)
[2020-05-07] MEDS: ENOXAPARIN SODIUM 40 MG/0.4 ML DISP.SYRIN SQ SCH (08:48)
[2020-05-07] MEDS: INSULIN REGULAR, HUMAN 100 UNIT/ML 3 ML VIAL SQ PRN ×2 (08:52→12:55)
[2020-05-07] MEDS ORDERED: PREGABALIN 25 MG CAPSULE PO SCH (09:00)
[2020-05-07] MEDS ORDERED: CARVEDILOL 12.5 MG TABLET PO SCH (09:00)
[2020-05-07] MEDS ORDERED: CLONIDINE HCL 0.1 MG TABLET PO SCH (09:00)
[2020-05-07] MEDS: NIFEdipine (10MG) 10 MG CAPSULE PO SCH ×3 (09:30→21:00)
[2020-05-07] MEDS ORDERED: CHLO50TA PO (09:46)
[2020-05-07] MEDS ORDERED: CHLO25TA2 PO (09:46)
[2020-05-07] MEDS ORDERED: CHOL100040 PO (09:46)
[2020-05-07] MEDS ORDERED: AMLO-213 PO (09:46)
[2020-05-07] MEDS ORDERED: SPIR25TA6 PO (09:46)
[2020-05-07] MEDS ORDERED: CYAN500T64 PO (09:46)
[2020-05-07] MEDS ORDERED: FURO-144 PO (09:46)
[2020-05-07] MEDS ORDERED: ATOR10TA PO (09:46)
[2020-05-07] MEDS ORDERED: ISOS30TA6 PO (09:46)
[2020-05-07] MEDS ORDERED: GABA-532 PO (09:46)
[2020-05-07] MEDS: INSULIN GLARGINE, 100 UNIT/ML CARTRIDGE SQ SCH ×2 (10:00→18:00)
[2020-05-07] MEDS: NITROGLYCERIN 0.4 MG/TAB BOTTLE SL PRN (10:12)
--- NOTE | 2020-05-07 10:12 | NUR ---
pt complained of chest pain 09/01. vs checked. stable. will reassess in 5 min
--- NOTE | 2020-05-07 10:17 | NUR ---
pt fell asleep. no chest pain at this time
[2020-05-07] MEDS ORDERED: CLONIDINE HCL 0.1 MG TABLET PO PRN (10:30)
[2020-05-07] MEDS ORDERED: POTASSIUM CHLORIDE 20 MEQ POWDER PACKET NG SCH (11:30)
--- NOTE | 2020-05-07 12:10 | NUR ---
bs checked 258
[2020-05-07] MEDS: CARVEDILOL 12.5 MG TABLET PO SCH (21:00)
[2020-05-07] MEDS: AZITHROMYCIN 250 MG TABLET PO SCH (21:45)
[2020-05-07] MEDS: DOXAZOSIN MESYLATE (4 MG) 4 MG TABLET PO SCH (22:00)
--- NOTE | 2020-05-07 23:51 | NUR ---
reprot given to adamaris wilder for peng pt tre ann transported to 2nd floor
--- NOTE | 2020-05-08 00:12 | NUR ---
pt transported to 2nd floor
[2020-05-08 00:30] VITALS: BP 137/73
--- NOTE | 2020-05-08 00:30 | NUR ---
ADMISSION NOTE PATIENT CAME FROM HOME WHERE SHE WAS EXPERIENCING SOB AND CONGESTION. LIVING WITH SON/MEDICAL CLERICAL ASSISTANT WHOOM RECENTLY TESTED POSITIVE FOR COVID 19. PT BEING ADMITTED TO [facility] FOR HYPOXIC RESP FAILUE. PT AXO X3 ADMISSION ASSESSMENT PERFORMED. PT ON 2LNC. ORIENTED TO ROOM. BED DOWN LOCKED SKIN INTACT DEMONSTRATED PROPER USE OF CALL LIGHT. PT VERY TRIBAL. MULTILINGUAL STATES "i SPEAK 6 LANGUAGES."
[2020-05-08] MEDS: CEFTRIAXONE 1 G in IV D5W 50 ML IV SCH (01:15)
[2020-05-08 04:00] VITALS: BP 138/76
[2020-05-08] MEDS: NIFEdipine (10MG) 10 MG CAPSULE PO SCH ×3 (04:59→21:32)
[2020-05-08] MEDS: BLOOD SUGAR DIAGNOSTIC 1 EACH STRIP VI SCH ×4 (07:26→23:05)
[2020-05-08] MEDS: INSULIN REGULAR, HUMAN 100 UNIT/ML 3 ML VIAL SQ PRN ×3 (07:27→18:16)
--- NOTE | 2020-05-08 07:30 | NUR ---
rn note received pt in bed, a/a/o x4, pt has unlabored breathong no s/s of distress. safety measures in place.
--- NOTE | 2020-05-08 07:30 | NUR ---
ms rn receive o on bed, awake,alert,oriented x4,not in any form of distress,denies pain at this time, will monitor patient.
[2020-05-08 07:51] LABS: BASOPHILS % (AUTO) 0.2 % (0.0-2.0); EOSINOPHILS % (AUTO) 1.6 % (0.0-6.0); HEMATOCRIT 39 % (33-45); HEMOGLOBIN 13.1 g/dL (11.5-14.8); LYMPHOCYTES # (AUTO) 0.6 /CMM (0.8-4.8); LYMPHOCYTES % (AUTO) 22.2 % (20.0-44.0); MEAN CORPUSCULAR HGB CONC 33 g/dl (31.0-36.0); MEAN CORPUSCULAR VOLUME 92 fL (82-100); MONOCYTES # (AUTO) 0.3 /CMM (0.1-1.30); NEUTROPHILS # (AUTO) 1.9 /CMM (1.8-8.9); PLATELET COUNT (AUTO) 126 /CMM (150-450); RED BLOOD CELL COUNT(AUTO) 4.31 MIL/uL (4.0-5.2); WHITE BLOOD COUNT (AUTO) 2.9 K/uL (4.3-11.0)
[2020-05-08 07:53] LABS: CALCIUM, SERUM 8.5 mg/dL (8.5-10.1); CREATININE 1.1 mg/dL (0.6-1.3); POTASSIUM 3.9 mmol/L (3.5-5.1)
[2020-05-08 08:00] VITALS: BP 145/63
--- NOTE | 2020-05-08 09:56 | NUR ---
ms wilder breakfast served,due meds given,tolerated well.
[2020-05-08] MEDS: POTASSIUM CHLORIDE 10 MEQ TABLET.SA PO SCH (10:31)
[2020-05-08] MEDS: FUROSEMIDE 40 MG/4 ML VIAL IV SCH ×2 (10:31→16:30)
[2020-05-08] MEDS: ASPIRIN EC 81 MG TABLET.DR PO SCH (10:32)
[2020-05-08] MEDS: CHOLECALCIFEROL 1,000 UNIT TABLET (VIT D3) PO SCH (10:32)
[2020-05-08] MEDS: DULOXETINE HCL 30 MG CAPSULE.DR PO SCH (10:32)
[2020-05-08] MEDS: LOSARTAN POTASSIUM 50 MG TABLET PO SCH (10:32)
[2020-05-08] MEDS: CARVEDILOL 12.5 MG TABLET PO SCH ×2 (10:33→21:31)
[2020-05-08] MEDS: ENOXAPARIN SODIUM 40 MG/0.4 ML DISP.SYRIN SQ SCH (10:34)
[2020-05-08] MEDS: INSULIN GLARGINE, 100 UNIT/ML CARTRIDGE SQ SCH ×2 (10:46→18:00)
[2020-05-08 16:00] VITALS: BP 133/60
[2020-05-08] MEDS: DEXAMETHASONE SOD PHOSPHATE 10 MG/ML VIAL IV SCH (16:29)
[2020-05-08] MEDS: NITROGLYCERIN 0.4 MG/TAB BOTTLE SL PRN ×2 (17:01→17:16)
--- NOTE | 2020-05-08 17:05 | NUR ---
ms rn complain of chest pain,regulatory affairs manager at bedside, given nitro po x3,and was relieve, patient eating at this time.
[2020-05-08] MEDS: AZITHROMYCIN 250 MG TABLET PO SCH (21:27)
[2020-05-08] MEDS: GABAPENTIN 400 MG CAPSULE PO SCH (21:27)
[2020-05-08] MEDS: DOXAZOSIN MESYLATE (4 MG) 4 MG TABLET PO SCH (23:05)
[2020-05-08] MEDS: *INSULIN REGULAR(HUMULIN R)HUM 100 UNIT/ML VIAL SQ PRN (23:27)
[2020-05-09] MEDS: CEFTRIAXONE 1 G in IV D5W 50 ML IV SCH (01:17)
[2020-05-09] MEDS: NIFEdipine (10MG) 10 MG CAPSULE PO SCH ×3 (05:00→21:58)
--- NOTE | 2020-05-09 05:39 | NUR ---
nifedipine not give d/t low diastolic bp. bp 106/45
--- NOTE | 2020-05-09 07:30 | NUR ---
TELE/RN OPENING NOTE Patient resting in bed, A&O x 3, [place]. No complaints of pain/discomfort at this time. Breathing even and non-labored on RA, no SOB noted. No cardiac distress noted, on tele monitor reading SR 63. IV access noted on L FA#20 g, patent and intact, and flushing well. Sensation and circulation from all peripheral extremities intact. Bed locked to its lowest position, side rails x 2 up, call light in hand. Will continue with current medical management.
--- NOTE | 2020-05-09 07:30 | NUR ---
rn note pt remained stable during my shift, report given to incoming shift for peng.
[2020-05-09 08:00] VITALS: BP 135/64
[2020-05-09] MEDS: BLOOD SUGAR DIAGNOSTIC 1 EACH STRIP VI SCH ×4 (09:34→22:48)
[2020-05-09] MEDS: ENOXAPARIN SODIUM 40 MG/0.4 ML DISP.SYRIN SQ SCH (09:54)
[2020-05-09] MEDS: INSULIN GLARGINE, 100 UNIT/ML CARTRIDGE SQ SCH ×2 (09:55→18:00)
[2020-05-09] MEDS: INSULIN REGULAR, HUMAN 100 UNIT/ML 3 ML VIAL SQ PRN ×3 (09:55→17:48)
[2020-05-09] MEDS: FUROSEMIDE 40 MG/4 ML VIAL IV SCH ×2 (09:58→17:47)
[2020-05-09] MEDS: POTASSIUM CHLORIDE 10 MEQ TABLET.SA PO SCH (09:58)
[2020-05-09] MEDS: DEXAMETHASONE SOD PHOSPHATE 10 MG/ML VIAL IV SCH (09:58)
[2020-05-09] MEDS: ASPIRIN EC 81 MG TABLET.DR PO SCH (09:59)
[2020-05-09] MEDS: CARVEDILOL 12.5 MG TABLET PO SCH ×2 (09:59→21:58)
[2020-05-09] MEDS: CHOLECALCIFEROL 1,000 UNIT TABLET (VIT D3) PO SCH (10:00)
[2020-05-09] MEDS: LOSARTAN POTASSIUM 50 MG TABLET PO SCH (10:00)
[2020-05-09] MEDS: DULOXETINE HCL 30 MG CAPSULE.DR PO SCH (10:01)
--- NOTE | 2020-05-09 10:22 | NUR ---
TELE/RN NOTE Dropped dexamethasone medication, wasted medication and took 1 more medication in the omnicell. Administered medication via IV.
[2020-05-09 12:00] VITALS: BP 132/64
--- NOTE | 2020-05-09 19:26 | NUR ---
COLLAR SEPARATOR OPENING NOTES PATIENT AWAKE IN BED. A/OX3; HARD OF HEARING. ON 2L NC; NO S/S OF ACUTE RESPIRATORY DISTRESS; BREATHING IS EVEN AND UNLABORED. NO C/O PAIN. TELE MONITOR READING NSR. IV PRESENT ON LEFT FA, SIZE 18, INTACT & PATENT, HEP LOCKED. CONTACT/DROPLET PRECAUTIONS IN PLACE FOR POSITIVE COVID 19. SAFETY MEASURES IN PLACE AND PATIENT'S NEEDS MET. BED LOCKED, HOB ELEVATED, SIDE RAILS X2, CALL LIGHT WITHIN REACH. WILL CONTINUE TO MONITOR.
--- NOTE | 2020-05-09 19:30 | NUR ---
TELE/RN CLOSING NOTE Patient resting in bed, A&O x 3. All needs met and attended to. No complaints of pain/discomfort at this time. Breathing even and non-labored on RA, no SOB noted. No cardiac distress noted, on tele monitor reading SR 63. IV access noted on L FA#20 g, patent and intact, and flushing well. Sensation and circulation from all peripheral extremities intact. Fall precautions maintained, will endorse to night court magistrate nurse.
[2020-05-09 20:00] VITALS: BP 145/68
[2020-05-09] MEDS: GABAPENTIN 400 MG CAPSULE PO SCH (21:58)
[2020-05-09] MEDS: DOXAZOSIN MESYLATE (4 MG) 4 MG TABLET PO SCH (21:59)
[2020-05-09] MEDS: *INSULIN REGULAR(HUMULIN R)HUM 100 UNIT/ML VIAL SQ PRN (22:49)
[2020-05-10] VITALS (7 sets, daily range): BP systolic 120–147; BP diastolic 54–81
[2020-05-10] MEDS: CEFTRIAXONE 1 G in IV D5W 50 ML IV SCH (00:59)
[2020-05-10] MEDS: NIFEdipine (10MG) 10 MG CAPSULE PO SCH ×3 (05:45→22:01)
[2020-05-10] MEDS: *INSULIN REGULAR(HUMULIN R)HUM 100 UNIT/ML VIAL SQ PRN ×2 (06:39→22:17)
[2020-05-10 06:50] LABS: BASOPHILS % (AUTO) 0.1 % (0.0-2.0); HEMATOCRIT 38 % (33-45); HEMOGLOBIN 12.9 g/dL (11.5-14.8); LYMPHOCYTES # (AUTO) 0.6 /CMM (0.8-4.8); LYMPHOCYTES % (AUTO) 10.8 % (20.0-44.0); MEAN CORPUSCULAR HGB CONC 34 g/dl (31.0-36.0); MEAN CORPUSCULAR VOLUME 90 fL (82-100); MONOCYTES # (AUTO) 0.4 /CMM (0.1-1.30); MONOCYTES % (AUTO) 7.2 % (2.0-12.0); NEUTROPHILS # (AUTO) 4.3 /CMM (1.8-8.9); NEUTROPHILS % (AUTO) 81.9 % (43.0-81.0); PLATELET COUNT (AUTO) 165 /CMM (150-450); RED BLOOD CELL COUNT(AUTO) 4.26 MIL/uL (4.0-5.2); WHITE BLOOD COUNT (AUTO) 5.2 K/uL (4.3-11.0)
[2020-05-10 07:18] LABS: CALCIUM, SERUM 8.8 mg/dL (8.5-10.1); CREATININE 1.3 mg/dL (0.6-1.3); POTASSIUM 4.2 mmol/L (3.5-5.1)
[2020-05-10] MEDS: BLOOD SUGAR DIAGNOSTIC 1 EACH STRIP VI SCH ×4 (07:25→22:15)
--- NOTE | 2020-05-10 07:50 | NUR ---
BOARD OF EDUCATION SECRETARY CLOSING NOTES PATIENT AWAKE IN BED. A/OX3. ON RA; NO S/S OF ACUTE RESPIRATORY DISTRESS; BREATHING IS EVEN AND UNLABORED. NO C/O PAIN. TELE MONITOR READING NSR. IV PRESENT ON LEFT FA, SIZE 18, INTACT & PATENT, HEP LOCKED. SAFETY MEASURES IN PLACE AND PATIENT'S NEEDS MET. BED LOCKED, HOB ELEVATED, SIDE RAILS X2, CALL LIGHT WITHIN REACH. ENDORSED TO DAY SHIFT RN PLAN OF CARE.
--- NOTE | 2020-05-10 08:00 | NUR ---
RN NOTES PATIENT AWAKE IN BED. A/OX3. ON RA; NO S/S OF RESPIRATORY DISTRESS; BREATHING IS EVEN AND UNLABORED. NO C/O PAIN. TELE MONITOR READING NSR. IV PRESENT ON LEFT FA, SIZE 18, INTACT & PATENT, HEP LOCKED. SAFETY MEASURES IN PLACE AND PATIENT'S NEEDS MET. BED LOCKED, HOB ELEVATED, SIDE RAILS X2, CALL LIGHT WITHIN REACH.
[2020-05-10] MEDS: CHOLECALCIFEROL 1,000 UNIT TABLET (VIT D3) PO SCH (10:23)
[2020-05-10] MEDS: FUROSEMIDE 40 MG/4 ML VIAL IV SCH ×2 (10:23→18:30)
[2020-05-10] MEDS: DEXAMETHASONE SOD PHOSPHATE 10 MG/ML VIAL IV SCH (10:23)
[2020-05-10] MEDS: POTASSIUM CHLORIDE 10 MEQ TABLET.SA PO SCH (10:23)
[2020-05-10] MEDS: DULOXETINE HCL 30 MG CAPSULE.DR PO SCH (10:23)
[2020-05-10] MEDS: ASPIRIN EC 81 MG TABLET.DR PO SCH (10:23)
[2020-05-10] MEDS: CARVEDILOL 12.5 MG TABLET PO SCH ×2 (10:24→22:01)
[2020-05-10] MEDS: LOSARTAN POTASSIUM 50 MG TABLET PO SCH (10:24)
[2020-05-10] MEDS: INSULIN GLARGINE, 100 UNIT/ML CARTRIDGE SQ SCH ×2 (10:26→18:34)
[2020-05-10] MEDS: ENOXAPARIN SODIUM 40 MG/0.4 ML DISP.SYRIN SQ SCH (10:27)
[2020-05-10] MEDS: INSULIN REGULAR, HUMAN 100 UNIT/ML 3 ML VIAL SQ PRN ×2 (12:38→18:36)
--- NOTE | 2020-05-10 15:00 | NUR ---
PT'S LT HAND HEPLOCK GOT INFILTRATED AND PT IS A HARDSTICK WITH MANY ATTEMPTS AND FAILED.NOTIFIED GEORGE ABRAMS WITH ORDERS FOR MIDLINE INSERTION AND CARRIED OUT.
--- NOTE | 2020-05-10 18:14 | NUR ---
RN NOTES PATIENT AWAKE IN BED. A/OX3. ON RA; NO S/S OF RESPIRATORY DISTRESS; BREATHING IS EVEN AND UNLABORED. NO C/O PAIN. TELE MONITOR READING NSR. MIDLINE PRESENT ON THE RIGHT UPPER ARM 18 GAUGE , SIZE 18, INTACT & PATENT. SAFETY MEASURES IN PLACE AND PATIENT'S NEEDS MET. BED LOCKED, HOB ELEVATED, SIDE RAILS X2, CALL LIGHT WITHIN REACH. WILL ENDORSE CARE TO ONCOMING SHIFT NURSE
--- NOTE | 2020-05-10 21:00 | NUR ---
ENVIRONMENTAL DEPARTMENT MANAGER NOTES RECEIVED ON BED,A/O X3,[place] ON RIGHT EAR.SALINE LOCK YOGI INTACT AND PATENT.O2 IN USED ON AND OFF,ISOLATION PRECAuTION FOR COVID + PCR TEST.CALL LIGHT IN REACH,NEEDS ANTICIPATED.
[2020-05-10] MEDS: GABAPENTIN 400 MG CAPSULE PO SCH (22:00)
--- NOTE | 2020-05-10 22:00 | NUR ---
SALES PROMOTION REPRESENTATIVE NOTES ACCU-CHECK BLOOD SUGAR CHECK 302,COVERED WITH HUMULIN R 8U PER SLIDING SCALE.SNACKS AT BEDSIDE.
[2020-05-10] MEDS: DOXAZOSIN MESYLATE (4 MG) 4 MG TABLET PO SCH (22:18)
--- NOTE | 2020-05-10 23:21 | NUR ---
BULK SAUSAGE CASING TIER OFF NOTES PATIENT MOANING AND SHE TELL TO THE CUSTOMER SALES CONSULTANT,SHE'S HAVING CHEST PAIN.DR BURRIS MADE AWARE OF PATIENT CONCERN,VITALS SIGNS WITH IN NORMAL LIMITS,SR 76 ON TELE MONITOR,WITH ORDER TO GIVE NITRO SL 0.4.
[2020-05-11] VITALS (8 sets, daily range): BP systolic 104–154; BP diastolic 56–78
[2020-05-11] MEDS ORDERED: NITROGLYCERIN 0.4 MG/TAB BOTTLE SL PRN
--- NOTE | 2020-05-11 | NUR ---
TELE RNNOTES OFFERED TO MEDICATED NITRO SL BUT REFUSED,CLAIMED NO CHEST PAIN.
[2020-05-11] MEDS: CEFTRIAXONE 1 G in IV D5W 50 ML IV SCH (01:00)
--- NOTE | 2020-05-11 05:45 | NUR ---
`AUTOMOTIVE PARTS COUNTER ASSOCIATE NOTES ACCU-CHECK BLOOD SUGAR CHECK 120,NO INSULIN COVERAGE.
[2020-05-11] MEDS: NIFEdipine (10MG) 10 MG CAPSULE PO SCH ×2 (05:56→12:51)
[2020-05-11] MEDS: BLOOD SUGAR DIAGNOSTIC 1 EACH STRIP VI SCH ×3 (05:58→17:33)
--- NOTE | 2020-05-11 06:59 | NUR ---
SCIENTIFIC RESEARCH MANAGER NOTES FAIRLY RESTED AT NIGHT,MOANS AT TIMES,DENIES CHEST PAIN,NO EPISODE OF SOB,O2 IN USED ON AND OFF,LATEST O2 SAT 97%.IN NO ACUTE DISTRESS.WILL ENDORSE TO DAY NURSE FOR ALLY.
--- NOTE | 2020-05-11 08:18 | NUR ---
RN NOTES PATIENT AWAKE IN BED. A/OX3. ON RA; NO S/S OF RESPIRATORY DISTRESS; BREATHING IS EVEN AND UNLABORED. NO C/O PAIN. MIDLINE PRESENT ON THE RIGHT UPPER ARM 18 GAUGE , INTACT & PATENT. SAFETY MEASURES IN PLACE AND PATIENT'S NEEDS MET. BED LOCKED, HOB ELEVATED, SIDE RAILS X2, CALL LIGHT WITHIN REACH. WILL CONTINUE TO MONITOR
[2020-05-11 08:56] LABS: CALCIUM, SERUM 8.8 mg/dL (8.5-10.1); CARBON DIOXIDE 28 mmol/L (21-32); CHLORIDE 100 mmol/L (98-107); CREATININE 1.3 mg/dL (0.6-1.3); GLUCOSE 123 mg/dL (74-106); POTASSIUM 4.3 mmol/L (3.5-5.1); SODIUM SERUM 138 mmol/L (136-145); UREA NITROGEN, BLOOD 44 mg/dL (7-18)
[2020-05-11] MEDS: DULOXETINE HCL 30 MG CAPSULE.DR PO SCH (09:33)
[2020-05-11] MEDS: FUROSEMIDE 40 MG/4 ML VIAL IV SCH ×2 (09:33→17:33)
[2020-05-11] MEDS: CHOLECALCIFEROL 1,000 UNIT TABLET (VIT D3) PO SCH (09:33)
[2020-05-11] MEDS: POTASSIUM CHLORIDE 10 MEQ TABLET.SA PO SCH (09:33)
[2020-05-11] MEDS: ASPIRIN EC 81 MG TABLET.DR PO SCH (09:33)
[2020-05-11] MEDS: CARVEDILOL 12.5 MG TABLET PO SCH (09:34)
[2020-05-11] MEDS: LOSARTAN POTASSIUM 50 MG TABLET PO SCH (09:34)
[2020-05-11] MEDS: ENOXAPARIN SODIUM 40 MG/0.4 ML DISP.SYRIN SQ SCH (09:35)
[2020-05-11] MEDS: DEXAMETHASONE SOD PHOSPHATE 10 MG/ML VIAL IV SCH (09:35)
[2020-05-11] MEDS: INSULIN GLARGINE, 100 UNIT/ML CARTRIDGE SQ SCH ×2 (09:41→17:35)
[2020-05-11] MEDS: INSULIN REGULAR, HUMAN 100 UNIT/ML 3 ML VIAL SQ PRN ×2 (12:50→17:37)
[2020-05-11] MEDS ORDERED: INFLUENZA VACCINE 2020-21 0.5 ML DISP.SYRIN IM ONE (13:10)
--- NOTE | 2020-05-11 19:00 | NUR ---
PT LYING IN BED AWAITING FOR AMBULANCE PICK FOR DISCHARGE TO [facility].REPORT CALLED IN TO MERYL TAY.
--- NOTE | 2020-05-11 21:15 | NUR ---
JACKERMAN NOTE: PATIENT READY FOR DISCHARGE, EMT AT BEDSIDE, REPORT GIVEN AND DISCHARGE PAPERWORK GIVEN. IV TO JOSELYN REMOVED, COVERED WITH GAUZE, PRESSURE APPLIED AND SECURED WITH TAPE. TELE BOX REMOVED. BELONGING WITH PATIENT. DISCHARGE PAPERWORK COMPLETED AND SIGNED WITH DAY SHIFT. PATIENT OF FLOOR IN STABLE CONDITION.
== END 2020-05-11 21:15 | DRG 177 ==
LOC: ER 18:33 → UNDOADMIN 05-07 01:16 → TRANSITION 05-07 01:16 → TELE2 05-07 23:24 → UNDODISIN 05-08 21:00
PROVIDERS: ADMIT Registered Nurse; ATTEND Nurse Practitioner Acute Care
PROC: 05HY33Z Insertion of Infusion Device into Upper Vein, Percutaneous Approach (ICD-10-PCS; principal; 2020-05-11)
DX: U07.1 COVID-19 (principal); I50.33 Acute on chronic diastolic (congestive) heart failure; J96.01 Acute respiratory failure with hypoxia; N17.0 Acute kidney failure with tubular necrosis; J12.89 Other viral pneumonia; J15.9 Unspecified bacterial pneumonia; I13.0 Hypertensive heart and chronic kidney disease with heart failure and stage 1 through stage 4 chronic kidney disease, or unspecified chronic kidney disease; N39.0 Urinary tract infection, site not specified; J98.11 Atelectasis; E66.2 Morbid (severe) obesity with alveolar hypoventilation; J90 Pleural effusion, not elsewhere classified; I16.0 Hypertensive urgency; N18.9 Chronic kidney disease, unspecified; Z79.4 Long term (current) use of insulin; E11.22 Type 2 diabetes mellitus with diabetic chronic kidney disease; E78.5 Hyperlipidemia, unspecified; E11.65 Type 2 diabetes mellitus with hyperglycemia; F32.9 Major depressive disorder, single episode, unspecified; I25.10 Atherosclerotic heart disease of native coronary artery without angina pectoris; Z79.82 Long term (current) use of aspirin; Z79.899 Other long term (current) drug therapy; Z96.651 Presence of right artificial knee joint; Z87.440 Personal history of urinary (tract) infections; M19.90 Unspecified osteoarthritis, unspecified site; K21.9 Gastro-esophageal reflux disease without esophagitis; H91.90 Unspecified hearing loss, unspecified ear; D63.1 Anemia in chronic kidney disease; B96.20 Unspecified Escherichia coli [E. coli] as the cause of diseases classified elsewhere; Z68.37 Body mass index [BMI] 37.0-37.9, adult; D69.6 Thrombocytopenia, unspecified
CPT/HCPCS: 36415; 71045-TC; 80048-TC; 80053-TC; 80061-TC; 80076-TC; 81001; 82550-TC; 82728-TC; 82962-TC; 83605-TC; 83615-TC; 83735-TC; 83880; 84100-TC; 84443-TC; 84484-TC; 85025-TC; 85378-TC; 85730-TC; 86140-TC; 87040-TC; 87081-TC; 87086-TC; 87186-TC; 93308-TC; 97112-TC; 97116-TC; 97530-TC; C9803; G0378; J0360; J0696; J1100; J1650; J1815; J1940; J2405; J3490; J7050; J7060; Q2036; U0003

== ENCOUNTER 2020-12-03 22:36 | Emergency (ER) | payer MEDICARE, OTHER ==
[~2020-12-03] VITALS: Ht 157.5 cm; Wt 91.2 kg
[~2020-12-03 22:36] MED LIST changes: +AMLO-213 PO; +ATOR10TA PO; +CHLO25TA2 PO; +CHLO50TA PO; +CYAN500T9 PO; -DULA0.75 SQ; +FURO-144 PO; -FURO40TA5 PO; +GABA-532 PO; +ISOS30TA86 PO; -PREG75CA PO; +SPIR25TA6 PO
[2020-12-03] MEDS ORDERED: METOCLOPRAMIDE HCL 10 MG/2 ML VIAL IV ONE (23:00)
[2020-12-03] MEDS ORDERED: diphenhydrAMINE HCL 50 MG/ML VIAL IV ONE (23:00)
[2020-12-03] MEDS ORDERED: KETOROLAC TROMETHAMINE INJ 30 MG/ML VIAL IV ONE (23:00)
[2020-12-03] MEDS ORDERED: IV NS 0.9% 1,000 ML BAG IV ONE (23:00)
[2020-12-03] MEDS ORDERED: KETOROLAC TROMETHAMINE 15 MG/ML VIAL ONE (23:13)
[2020-12-03] MEDS ORDERED: diphenhydrAMINE HCL 50 MG/ML VIAL ONE (23:13)
[2020-12-03] MEDS ORDERED: METOCLOPRAMIDE HCL 10 MG/2 ML VIAL ONE (23:13)
[2020-12-03 23:26] LABS: CALCIUM, SERUM 8.5 mg/dL (8.5-10.1); CARBON DIOXIDE 26 mmol/L (21-32); CHLORIDE 107 mmol/L (98-107); GLUCOSE 120 mg/dL (74-106); POTASSIUM 4.2 mmol/L (3.5-5.1); SODIUM SERUM 140 mmol/L (136-145); UREA NITROGEN, BLOOD 22 mg/dL (7-18)
--- NOTE | 2020-12-04 02:09 | NUR ---
CALLED SON, WILL BE HERE 20MINS
--- NOTE | 2020-12-04 02:31 | NUR ---
PT is medically stable for d/c. IV removed. Catheter intact and site benign. Pressure and 4x4 applied to site. No bleeding noted.Patient discharged to home in stable condition. Written and verbal after care instructions given. Patient verbalizes understanding of instruction. pt was pickedup by the son and was assisted to the car via wc.
[2020-12-04 02:33] VITALS: BP 164/70
== END 2020-12-04 02:32 | disposition home or self-care (01) ==
LOC: ER 22:38
DX: I13.0 Hypertensive heart and chronic kidney disease with heart failure and stage 1 through stage 4 chronic kidney disease, or unspecified chronic kidney disease (principal); E11.22 Type 2 diabetes mellitus with diabetic chronic kidney disease; I50.9 Heart failure, unspecified; N18.9 Chronic kidney disease, unspecified; R51.9 Headache, unspecified; Z79.899 Other long term (current) drug therapy; Z79.4 Long term (current) use of insulin
CPT/HCPCS: 36415; 70450; 80048; 84484; 96361; 96374; 96375; 99285; J1200; J1885; J2765

== ENCOUNTER 2020-12-14 05:01 | Inpatient (IN) | payer MEDICARE, OTHER ==
[~2020-12-14] VITALS: Ht 157.5 cm; Wt 96.6 kg
--- NOTE | 2020-12-14 05:04 | NUR ---
pt bibra c/o sob x1hr captain assistant. Pt aaox4 breathing evenly and unlabored. Pt denies cp and abd pain. Per pt, she woke up with sob. Pt attached to monitor and pox, saturating 97% RA. at bedside.Skin, warm, dry, and intact. Pt given calll light within reach.
--- NOTE | 2020-12-14 05:25 | NUR ---
blood sent to lab
[2020-12-14 05:35] LABS: BASOPHILS # (AUTO) 0.1 K/uL (0.0-0.2); EOSINOPHILS % (AUTO) 2.5 % (0.0-6.0); HEMATOCRIT 33 % (33-45); HEMOGLOBIN 10.9 g/dL (11.5-14.8); LYMPHOCYTES # (AUTO) 1.1 K/uL (0.8-4.8); LYMPHOCYTES % (AUTO) 20.4 % (20.0-44.0); MEAN CORPUSCULAR HGB CONC 34 g/dl (31.0-36.0); MEAN CORPUSCULAR VOLUME 95 fL (82-100); MONOCYTES # (AUTO) 0.4 K/uL (0.1-1.30); MONOCYTES % (AUTO) 8.2 % (2.0-12.0); NEUTROPHILS # (AUTO) 3.7 K/uL (1.8-8.9); NEUTROPHILS % (AUTO) 67.9 % (43.0-81.0); PLATELET COUNT (AUTO) 143 K/uL (150-450); RED BLOOD CELL COUNT(AUTO) 3.44 MIL/uL (4.0-5.2); WHITE BLOOD COUNT (AUTO) 5.4 K/uL (4.3-11.0)
--- NOTE | 2020-12-14 05:42 | NUR ---
covid swab sent to lab
[2020-12-14 05:44] LABS: CALCIUM, SERUM 8.2 mg/dL (8.5-10.1); CARBON DIOXIDE 24 mmol/L (21-32); CHLORIDE 107 mmol/L (98-107); CREATININE 1.4 mg/dL (0.6-1.3); GLUCOSE 217 mg/dL (74-106); SODIUM SERUM 140 mmol/L (136-145); UREA NITROGEN, BLOOD 32 mg/dL (7-18)
--- NOTE | 2020-12-14 05:48 | NUR ---
xray at bedside
[2020-12-14 05:57] LABS: ALANINE AMINOTRANSFERASE 43 U/L (12-78); ALBUMIN 3.3 g/dL (3.4-5.0); ALKALINE PHOSPHATASE 60 U/L (46-116); ASPARTATE AMINOTRANSFERASE 21 U/L (15-37); BILIRUBIN,DIRECT 0.1 mg/dL (0.0-0.2); BILIRUBIN,TOTAL 0.6 mg/dL (0.2-1.0)
[2020-12-14] MEDS ORDERED: CEFTRIAXONE 1 G in IV D5W 50 ML IV ONE (06:30)
[2020-12-14] MEDS ORDERED: AZITHROMYCIN 500 MG in IV D5W 250 ML IV ONE (06:30)
[2020-12-14] MEDS ORDERED: AZITHROMYCIN 500 MG VIAL ONE (06:37)
[2020-12-14] MEDS ORDERED: CEFTRIAXONE 1GM BAG (ER ONLY) 50 ML IV ONE (06:37)
--- NOTE | 2020-12-14 07:05 | NUR ---
gave report to meño Otero for peng
--- NOTE | 2020-12-14 07:27 | NUR ---
PANEL SWEET GOODS MACHINE OPERATOR PAGED
--- NOTE | 2020-12-14 08:29 | NUR ---
CALLED NURSING VETERINARY PARASITOLOGIST FOR A BED.
[2020-12-14] MEDS ORDERED: ACETAMINOPHEN 325 MG TABLET PO PRN (08:30)
[2020-12-14] MEDS ORDERED: NITROGLYCERIN 0.4 MG/TAB BOTTLE SL PRN (08:30)
[2020-12-14] MEDS ORDERED: DEXTROSE 50%-WATER 50 ML DISP.SYRIN IV PRN (08:30)
[2020-12-14] MEDS ORDERED: ISOSORBIDE MONONITRATE (30MG) 30 MG TAB.SR.24H PO PRN (08:30)
[2020-12-14] MEDS ORDERED: ONDANSETRON HCL/PF 4 MG/2 ML VIAL IVP PRN (08:30)
[2020-12-14] MEDS ORDERED: MAGNESIUM HYDROXIDE 30 ML UDC PO PRN (08:30)
[2020-12-14] MEDS ORDERED: Z GUARD REMEDY 2 OZ OINT TP PRN (08:30)
[2020-12-14] MEDS ORDERED: MAG HYDROX/AL HYDROX/SIMETH 30 ML UDC PO PRN (08:30)
[2020-12-14] MEDS ORDERED: MORPHINE SULFATE INJ 2 MG/ML DISP.SYRIN IV PRN (08:30)
[2020-12-14] MEDS ORDERED: SPIRONOLACTONE 25 MG TABLET PO PRN (08:30)
--- NOTE | 2020-12-14 08:47 | NUR ---
BED 310-1
[2020-12-14] MEDS ORDERED: hydrALAZINE HCL IV 20 MG VIAL IV PRN (09:00)
[2020-12-14] MEDS: AMOX/CLAVULANATE 875 MG TABLET PO SCH ×2 (09:00→17:41)
[2020-12-14] MEDS: DULOXETINE HCL 30 MG CAPSULE.DR PO SCH (09:00)
--- NOTE | 2020-12-14 09:06 | NUR ---
REPORT GIVEN TO MORENO SHETH FOR ALLY. AWAITING TRANSFER TO FLOOR.
[2020-12-14 09:30] VITALS: BP 170/69
--- NOTE | 2020-12-14 09:35 | NUR ---
PLASTIC SHEETS SUPERVISOR NOTE FILIBERTO RECEIVED FROM ER ON A GURNEY ACCOMPANIED BY 2 NURSES. PATIENT TRANSFERRED TO BED AND COMFORT MEASURES PROVIDED. PATIENT IS ALERT AND ORIENTED X 4. PATIENT IS ON ROOM AIR SATURATING AT 98% WITH NO SIGNS OF DISTRESS WITH EVEN AND UNLABORED BREATHING. COMFORT MEASURES PROVIDED. PATIENT WITH RIGHT FOREARM IV ACCESS G 20 PATENT AND INTACT. SAFETY MEASURES ENSURED WITH BED LOCKED AND ON LOWEST POSITION. CALL LIGHT AND BEDSIDE TABLE WITHIN REACH AT ALL TIMES. WILL CONTINUE TO MONITOR PATIENT.
[2020-12-14] MEDS ORDERED: LABETALOL HCL INJ 200 MG/40 ML VIAL IV PRN (10:00)
[2020-12-14] MEDS: ASPIRIN EC 81 MG TABLET.DR PO SCH (11:41)
[2020-12-14] MEDS: FUROSEMIDE 40 MG TABLET PO SCH (11:41)
[2020-12-14] MEDS: CYANOCOBALAMIN 500 MCG TABLET PO SCH (11:41)
[2020-12-14] MEDS: AMLODIPINE BESYLATE 10 MG TABLET PO SCH (11:42)
[2020-12-14] MEDS: GABAPENTIN 100 MG CAPSULE PO SCH (11:42)
[2020-12-14] MEDS: ENOXAPARIN SODIUM 30 MG/0.3 ML DISP.SYRIN SQ SCH (11:52)
[2020-12-14] MEDS ORDERED: INSULIN ASPART/LISPRO 100 UNIT/ML CARTRIDGE SQ SCH (12:00)
[2020-12-14] MEDS ORDERED: BLOOD SUGAR DIAGNOSTIC 1 EACH STRIP IN SCH (12:00)
[2020-12-14] MEDS: BLOOD SUGAR DIAGNOSTIC 1 EACH STRIP IN SCH ×3 (15:38→21:54)
[2020-12-14 16:25] VITALS: BP 109/43
[2020-12-14] MEDS ORDERED: METFORMIN 500 MG TABLET PO SCH (17:00)
--- NOTE | 2020-12-14 17:00 | NUR ---
ANIMAL CONTROL LICENSING WORKER CLOSING NOTE PATIENT IS ALERT AND ORIENTED X 4. PATIENT IS ON ROOM AIR SATURATING AT 98-99% WITH NO SIGNS OF DISTRESS WITH EVEN AND UNLABORED BREATHING. COMFORT MEASURES PROVIDED. PATIENT WITH RIGHT FOREARM IV ACCESS G 20 PATENT AND INTACT. PATIENT ON SALES REPRESENTATIVE LEATHER GOODS WITH SINUS RHYTHYM BETWEEN 80S-90'S. SAFETY MEASURES ENSURED WITH BED LOCKED AND ON LOWEST POSITION. CALL LIGHT AND BEDSIDE TABLE WITHIN REACH AT ALL TIMES. WILL ENDORSE PATIENT FOR CONTINUITY OF CARE.
[2020-12-14] MEDS: INSULIN REGULAR, HUMAN 100 UNIT/ML 3 ML VIAL SQ PRN ×2 (17:58→21:53)
[2020-12-14] MEDS ORDERED: GABAPENTIN 400 MG CAPSULE PO SCH ×2 (18:00→22:00)
[2020-12-14] MEDS ORDERED: ATORVASTATIN 10 MG TABLET PO SCH (18:00)
[2020-12-14 20:00] VITALS: BP 145/79
--- NOTE | 2020-12-14 20:15 | NUR ---
ADMISSION NOTE. DIRECT ADMISSION. PATIENT ORIGINALLY FROM HOME AND WAS AD[facility]ITT[facility] TO [facility] BUT DISCHARGED FROM [facility]. PATIENT FOUND TO HAVE ELEVATED LACTIC ACID AND WAS ADMITTED TO [facility] FOR LACTIC ACIDOSIS. NEW MEDICATION ORDERS FROM DR. VILLALOBOS FAXED TO PHARMACY. PATIENT IS A/O X3. PT IS STILL ON 5150 HOLD THAT EXPIRES 12/16/20 AT 1939 FOR DTS ORIGINAL PAPER WORK PLACED ON CHART. . SITTER AT THE BEDSIDE FOR ONE TO ONE OBSERVATION. PT CURRENTLY HAS NO IV ACCESS. PT BREATHING EVEN AND UNLABORED. PT C/O BACK PAIN RATED 8/10. PT ORIENTED TO ROOM. CALL LIGHT PLACED WITHIN REACH. WILL CONT TO MONITOR. ADMISSION ASSESSMENT TO BE PERFORMED. Addendum: 12/14/20 at 2058 by ANTHONY REYES RN ERROR WRONG PATIENT ERROR
[2020-12-14] MEDS: CARVEDILOL 12.5 MG TABLET PO SCH (21:44)
[2020-12-14] MEDS ORDERED: DOXAZOSIN MESYLATE (4 MG) 4 MG TABLET PO SCH (22:00)
[2020-12-14] MEDS ORDERED: Medication Not On Formulary EA (Melatonin 3 MG) PO SCH (22:00)
[2020-12-14] MEDS ORDERED: GABAPENTIN 300 MG CAPSULE PO SCH (22:00)
[2020-12-14] MEDS ORDERED: INSULIN GLARGINE, 100 UNIT/ML CARTRIDGE SQ SCH (22:00)
[2020-12-15] VITALS: BP 138/60
[2020-12-15 04:00] VITALS: BP 110/51
[2020-12-15] MEDS: BLOOD SUGAR DIAGNOSTIC 1 EACH STRIP IN SCH ×2 (07:04→13:24)
[2020-12-15] MEDS: INSULIN REGULAR, HUMAN 100 UNIT/ML 3 ML VIAL SQ PRN ×2 (07:06→14:31)
[2020-12-15 07:09] LABS: BASOPHILS % (AUTO) 0.8 % (0.0-2.0); EOSINOPHILS % (AUTO) 2.3 % (0.0-6.0); HEMATOCRIT 32 % (33-45); LYMPHOCYTES # (AUTO) 0.9 K/uL (0.8-4.8); LYMPHOCYTES % (AUTO) 15.1 % (20.0-44.0); MEAN CORPUSCULAR HGB CONC 34 g/dl (31.0-36.0); MEAN CORPUSCULAR VOLUME 94 fL (82-100); MONOCYTES # (AUTO) 0.5 K/uL (0.1-1.30); MONOCYTES % (AUTO) 7.8 % (2.0-12.0); NEUTROPHILS # (AUTO) 4.4 K/uL (1.8-8.9); PLATELET COUNT (AUTO) 134 K/uL (150-450); WHITE BLOOD COUNT (AUTO) 5.9 K/uL (4.3-11.0)
[2020-12-15 07:31] LABS: ALBUMIN 3.1 g/dL (3.4-5.0); BILIRUBIN,TOTAL 0.5 mg/dL (0.2-1.0); CALCIUM, SERUM 7.8 mg/dL (8.5-10.1); CREATININE 1.3 mg/dL (0.6-1.3); MAGNESIUM 1.9 mg/dL (1.8-2.4); PHOSPHORUS 4.4 mg/dL (2.5-4.9); POTASSIUM 3.9 mmol/L (3.5-5.1); TOTAL PROTEIN, SERUM 5.9 g/dL (6.4-8.2)
[2020-12-15 08:00] VITALS: BP 135/62
[2020-12-15] MEDS ORDERED: METFORMIN 500 MG TABLET PO SCH (09:00)
[2020-12-15] MEDS ORDERED: INSULIN GLARGINE, 100 UNIT/ML CARTRIDGE SQ SCH (09:00)
[2020-12-15] MEDS ORDERED: LOSARTAN POTASSIUM 50 MG TABLET PO SCH (09:00)
[2020-12-15] MEDS: ASPIRIN EC 81 MG TABLET.DR PO SCH (09:01)
[2020-12-15] MEDS: GABAPENTIN 100 MG CAPSULE PO SCH (09:01)
[2020-12-15] MEDS: AMOX/CLAVULANATE 875 MG TABLET PO SCH (09:01)
[2020-12-15] MEDS: AMLODIPINE BESYLATE 10 MG TABLET PO SCH (09:02)
[2020-12-15] MEDS: CYANOCOBALAMIN 500 MCG TABLET PO SCH (09:02)
[2020-12-15] MEDS: FUROSEMIDE 40 MG TABLET PO SCH (09:02)
[2020-12-15] MEDS: CARVEDILOL 12.5 MG TABLET PO SCH (09:02)
[2020-12-15] MEDS: DULOXETINE HCL 30 MG CAPSULE.DR PO SCH (09:02)
[2020-12-15 09:03] LABS: IRON, SERUM 53 ug/dl (50-175); TOTAL IRON BINDING CAPACITY 275 ug/dl (250-450)
[2020-12-15 09:11] VITALS: BP 135/62
[2020-12-15] MEDS: ENOXAPARIN SODIUM 30 MG/0.3 ML DISP.SYRIN SQ SCH (09:18)
[2020-12-15] MEDS ORDERED: AMOX-430 PO (10:29)
[2020-12-15] MEDS ORDERED: FURO40TA5 PO (10:29)
[2020-12-15 11:08] LABS: FERRITIN 49 ng/mL (8-388)
--- NOTE | 2020-12-15 16:31 | NUR ---
Patient was discharged to home with son. Patient is alert and oriented. Patient is on room air saturating 98%. No c/o pain or discomfort. Patient educated regarding use of lasix per md order along with abx course for next five days. Patient provided eudcation material. Patient left the facility in good stable condition.
== END 2020-12-15 16:35 | disposition home or self-care (01) | DRG 177 ==
LOC: ER 05:02 → TELE 09:12
PROVIDERS: ADMIT Internal Medicine; ATTEND Internal Medicine
DX: J69.0 Pneumonitis due to inhalation of food and vomit (principal); N17.0 Acute kidney failure with tubular necrosis; I50.31 Acute diastolic (congestive) heart failure; I13.0 Hypertensive heart and chronic kidney disease with heart failure and stage 1 through stage 4 chronic kidney disease, or unspecified chronic kidney disease; E66.2 Morbid (severe) obesity with alveolar hypoventilation; D69.6 Thrombocytopenia, unspecified; E11.22 Type 2 diabetes mellitus with diabetic chronic kidney disease; E78.5 Hyperlipidemia, unspecified; I25.10 Atherosclerotic heart disease of native coronary artery without angina pectoris; Z79.4 Long term (current) use of insulin; N18.9 Chronic kidney disease, unspecified; Z86.16 Personal history of COVID-19; Z79.82 Long term (current) use of aspirin; Z96.659 Presence of unspecified artificial knee joint; Z20.822 Contact with and (suspected) exposure to COVID-19; H91.90 Unspecified hearing loss, unspecified ear; Z68.39 Body mass index [BMI] 39.0-39.9, adult
CPT/HCPCS: 36415; 71045-TC; 80048-TC; 80053-TC; 80076-TC; 82728-TC; 82962-TC; 83540-TC; 83605-TC; 83735-TC; 83880; 84100-TC; 84439-TC; 84443-TC; 84484-TC; 85025-TC; 85730-TC; 87081-TC; 93307-TC; C9803; G0378; J0456; J0696; J1650; J1815; J7060

== ENCOUNTER 2021-02-18 12:39 | Inpatient (IN) | payer MEDICARE, OTHER ==
[~2021-02-18] VITALS: Ht 162.6 cm; Wt 97.5 kg
[~2021-02-18 12:39] MED LIST changes: +AMOX-430 PO; +FURO40TA5 PO
--- NOTE | 2021-02-18 12:39 | NUR ---
PT BIBRA 102 FROM HOME C/O CHEST PRESSURE STARTED 20 MIN DIRECTOR SECURITY RISK MANAGEMENT. PT IS AAOX3, NOT IN RESPIRATORY DISTRESS, HOOKED TO PAPER CONTROL CLERK, KEPT RESTED AND COMFORTABLE. WILL CONTINUE TO MONITOR.
--- NOTE | 2021-02-18 12:40 | NUR ---
SEEN AND EXAMINED BY .
--- NOTE | 2021-02-18 12:45 | NUR ---
IV LINE ESTABLISHED BLOOD DRAWN AND SENT TO LAB.
--- NOTE | 2021-02-18 12:59 | NUR ---
LAP RUNNER AT BEDSIDE FOR XRAY.
[2021-02-18] MEDS ORDERED: HYDR100T27 PO (13:05)
[2021-02-18] MEDS ORDERED: BACL5TAB PO (13:05)
--- NOTE | 2021-02-18 13:22 | NUR ---
CALLED [facility] AND PAGED DR VANN.
[2021-02-18 13:35] LABS: BASOPHILS % (AUTO) 0.7 % (0.0-2.0); EOSINOPHILS % (AUTO) 2.5 % (0.0-6.0); HEMATOCRIT 35 % (33-45); HEMOGLOBIN 11.9 g/dL (11.5-14.8); LYMPHOCYTES # (AUTO) 1.3 K/uL (0.8-4.8); LYMPHOCYTES % (AUTO) 22.3 % (20.0-44.0); MEAN CORPUSCULAR HGB CONC 34 g/dl (31.0-36.0); MEAN CORPUSCULAR VOLUME 92 fL (82-100); MONOCYTES # (AUTO) 0.6 K/uL (0.1-1.30); MONOCYTES % (AUTO) 9.7 % (2.0-12.0); NEUTROPHILS # (AUTO) 3.7 K/uL (1.8-8.9); NEUTROPHILS % (AUTO) 64.8 % (43.0-81.0); PLATELET COUNT (AUTO) 137 K/uL (150-450); RED BLOOD CELL COUNT(AUTO) 3.82 MIL/uL (4.0-5.2); WHITE BLOOD COUNT (AUTO) 5.7 K/uL (4.3-11.0)
[2021-02-18 13:42] LABS: CALCIUM, SERUM 8.1 mg/dL (8.5-10.1); CARBON DIOXIDE 25 mmol/L (21-32); CHLORIDE 105 mmol/L (98-107); CREATININE 1.4 mg/dL (0.6-1.3); GLUCOSE 202 mg/dL (74-106); POTASSIUM 4.1 mmol/L (3.5-5.1); SODIUM SERUM 138 mmol/L (136-145); UREA NITROGEN, BLOOD 28 mg/dL (7-18)
--- NOTE | 2021-02-18 14:57 | NUR ---
room 328-2
[2021-02-18] MEDS ORDERED: DULA1.5P SQ (15:01)
--- NOTE | 2021-02-18 15:08 | NUR ---
REPORT GIVEN TO MERYL KONG FOR ALLY.
--- NOTE | 2021-02-18 15:21 | NUR ---
TELE ADMISSION NOTES PATIENT WAS BROUGHT BY ER NURSE JLE AND EMT TECH. PATIENT IS ALERT AND ORIENTED X 4, UKRAINIAN AND THAI SPEAKING. NO S/S OF DISTRESS NOTED. NO SOB. BREATHING IS EVEN AND UNLABORED. NO C/O PAIN AT THIS TIME. IV ACCESS RAC#18 PATENT AND INTACT. ORIENTED PATIENT TO STAFF, ROOM AND CALL LIGHT. SAFETY MEASURES IN PLACE WITH BED LOCKED AT LOW POSITION, SIDE RAILS UP X 2. WILL CONTINUE TO MONITOR THROUGHOUT SHIFT.
[2021-02-18 16:00] VITALS: BP 161/68
[2021-02-18] MEDS ORDERED: NITROGLYCERIN 0.4 MG/TAB BOTTLE SL PRN ×2 (16:00→17:30)
[2021-02-18] MEDS ORDERED: IV 1/2NS 1000 ML 1,000 ML IV PRN (16:30)
[2021-02-18] MEDS: hydrALAZINE HCL 50 MG TABLET PO SCH (17:21)
[2021-02-18] MEDS: ATORVASTATIN 10 MG TABLET PO SCH (17:21)
[2021-02-18] MEDS: IV 1/2NS 1000 ML 1,000 ML IV PRN (17:25)
[2021-02-18] MEDS: ENOXAPARIN SODIUM 40 MG/0.4 ML DISP.SYRIN SQ SCH (17:28)
[2021-02-18] MEDS ORDERED: ZOLPIDEM TARTRATE 5 MG TABLET PO PRN (17:30)
[2021-02-18] MEDS ORDERED: MAGNESIUM HYDROXIDE 30 ML UDC PO PRN (17:30)
[2021-02-18] MEDS ORDERED: HYDROCODONE/APAP 5/325MG TABLET PO PRN (17:30)
[2021-02-18] MEDS ORDERED: Z GUARD REMEDY 2 OZ OINT TP PRN (17:30)
[2021-02-18] MEDS ORDERED: MAG HYDROX/AL HYDROX/SIMETH 30 ML UDC PO PRN (17:30)
[2021-02-18] MEDS ORDERED: MORPHINE SULFATE INJ 2 MG/ML DISP.SYRIN IV PRN (17:30)
[2021-02-18] MEDS ORDERED: ONDANSETRON HCL/PF 4 MG/2 ML VIAL IVP PRN (17:30)
--- NOTE | 2021-02-18 19:18 | NUR ---
TELE CLOSING NOTES PATIENT IS AWAKE IN BED, RESTING COMFORTABLY. NO S/S OF DISTRESS NOTED. NO SOB. BREATHING IS EVEN AND UNLABORED. NO C/O PAIN AT THIS TIME. IV ACCESS RAC#18 PATENT AND INTACT WITH 0.45% NS @75MLS/HR. ALL NEEDS MET THROUGHOUT SHIFT. SAFETY MEASURES MAINTAINED. WILL ENDORSE CONTINUITY OF CARE TO ONCOMING SHIFT.
--- NOTE | 2021-02-18 19:30 | NUR ---
RN OPENING NOTE PATIENT SITTING UP AT THE EDGE OF THE BED, A/O X 4 AT THIS TIME. HEARING DIFFICULTY NOTED ON R EAR. PATIENT ABLE TO MAKE NEEDS KNOWN. PATIENT ON RA, TOLERATING, NO SOB NOTED AT REST. PATIENT'S TELE MONITOR READS SR 82 BPM WITH 1ST DEGREE BLOCK. PATIENT HAS A RAC 18 G WITH IVF ONGOING, PATENT AND INTACT. SAFETY MEASURES IN PLACE: BED LOCKED AND IN LOWEST POSITION, CALL LIGHT WITHIN REACH, SIDE RAILS UP, BED ALARM ON. WILL MONITOR PATIENT CLOSELY.
[2021-02-18 20:00] VITALS: BP 123/60
[2021-02-18] MEDS: GABAPENTIN 300 MG CAPSULE PO SCH (21:56)
--- NOTE | 2021-02-18 22:00 | NUR ---
RN NOTE PATIENT GIVEN AMBIEN REQUESTED TO HELP PATIENT SLEEP. PATIENT COMPLAINING OF DIFFICULTY BREATHING AFTER GLASS POLISHER OF 2200 MEDS SHE SAT UP THE BED AND WAS TALKING A LOT. 2L OF 02 GIVEN, PATIENT FELT BETTER AFTER. SATURATING 99%.
[2021-02-18] MEDS: INSULIN GLARGINE, 100 UNIT/ML CARTRIDGE SQ SCH (22:04)
[2021-02-19] VITALS: BP 152/93
[2021-02-19] MEDS: IV 1/2NS 1000 ML 1,000 ML IV PRN (06:37)
[2021-02-19 06:42] LABS: BASOPHILS # (AUTO) 0.1 K/uL (0.0-0.2); BASOPHILS % (AUTO) 0.9 % (0.0-2.0); EOSINOPHILS % (AUTO) 2.3 % (0.0-6.0); HEMATOCRIT 37 % (33-45); HEMOGLOBIN 12.5 g/dL (11.5-14.8); LYMPHOCYTES # (AUTO) 1.4 K/uL (0.8-4.8); LYMPHOCYTES % (AUTO) 21.6 % (20.0-44.0); MEAN CORPUSCULAR HGB CONC 34 g/dl (31.0-36.0); MEAN CORPUSCULAR VOLUME 92 fL (82-100); MONOCYTES # (AUTO) 0.6 K/uL (0.1-1.30); NEUTROPHILS # (AUTO) 4.2 K/uL (1.8-8.9); NEUTROPHILS % (AUTO) 66.2 % (43.0-81.0); PLATELET COUNT (AUTO) 140 K/uL (150-450); RED BLOOD CELL COUNT(AUTO) 3.98 MIL/uL (4.0-5.2); WHITE BLOOD COUNT (AUTO) 6.4 K/uL (4.3-11.0)
[2021-02-19 07:00] LABS: CALCIUM, SERUM 8.1 mg/dL (8.5-10.1); CREATININE 1.1 mg/dL (0.6-1.3); MAGNESIUM 2.3 mg/dL (1.8-2.4); PHOSPHORUS 3.5 mg/dL (2.5-4.9); POTASSIUM 3.8 mmol/L (3.5-5.1)
[2021-02-19 07:08] LABS: THYROID STIMULATING HORMONE 0.351 uIU/mL (0.358-3.74)
--- NOTE | 2021-02-19 07:30 | NUR ---
MANAGER CONSTRUCTION NOTES PT IN BED, ASLEEP, EASY TO AROUSE, ALERT AND ORIENTED, NO COMPLAINT AT THIS TIME, BREATHING PATTERN NORMAL, CALL LIGHT WITHIN REACH, NEEDS ATTENDED.
--- NOTE | 2021-02-19 07:33 | NUR ---
RN CLOSING NOTE PATIENT SLEEPING, EASILY AROUSED. A/O X 4 AT THIS TIME. HEARING DIFFICULTY NOTED ON R EAR. PATIENT ABLE TO MAKE NEEDS KNOWN. BS 176 MG/DL BEFORE LANTUS ADMIN. PATIENT ON 2 L O2 SUPPLEMENTATION FOR DYSPNEA, TOLERATING, NO SOB NOTED AT REST. PATIENT'S TELE MONITOR READS SR 67 BPM WITH 1ST DEGREE BLOCK. PATIENT HAS A RAC 18 G WITH 1/2 NS ONGOING, PATENT AND INTACT. SAFETY MEASURES IN PLACE: BED LOCKED AND IN LOWEST POSITION, CALL LIGHT WITHIN REACH, SIDE RAILS UP, BED ALARM ON. ALL NEEDS MET AND ATTENDED, ALL ORDERS CARRIED OUT. ENDORSED TO DAY SHIFT NURSE FOR ALLY.
[2021-02-19 08:00] VITALS: BP 155/88
[2021-02-19] MEDS ORDERED: FUROSEMIDE 40 MG TABLET PO SCH (09:00)
[2021-02-19] MEDS: PANTOPRAZOLE 40 MG TABLET.DR PO SCH (09:07)
[2021-02-19] MEDS: CHOLECALCIFEROL 1,000 UNIT TABLET (VIT D3) PO SCH (09:07)
[2021-02-19] MEDS: hydrALAZINE HCL 50 MG TABLET PO SCH ×2 (09:07→16:35)
[2021-02-19] MEDS: CYANOCOBALAMIN 500 MCG TABLET PO SCH (09:07)
[2021-02-19] MEDS: ASPIRIN EC 81 MG TABLET.DR PO SCH (09:08)
[2021-02-19] MEDS: ACETAMINOPHEN 325 MG TABLET PO PRN ×2 (09:10→21:40)
[2021-02-19] MEDS ORDERED: CT SWABBABLE VALVE TRANS SET 1 EA INFUS.SET MC ONE (09:34)
[2021-02-19] MEDS ORDERED: IOHEXOL-350 100 ML VIAL IV ONE (09:34)
[2021-02-19] MEDS ORDERED: METOPROLOL TARTRATE INJ 5 MG/5 ML AMPUL IVP PRN (10:00)
[2021-02-19] MEDS ORDERED: NITROGLYCERIN 0.4 MG/TAB BOTTLE SL ONE (10:00)
[2021-02-19] MEDS ORDERED: KETOROLAC TROMETHAMINE INJ 30 MG/ML VIAL IV ONE (10:30)
[2021-02-19] MEDS ORDERED: METOPROLOL TARTRATE INJ 5 MG/5 ML AMPUL ONE (11:17)
[2021-02-19 16:00] VITALS: BP 158/73
[2021-02-19] MEDS: ENOXAPARIN SODIUM 40 MG/0.4 ML DISP.SYRIN SQ SCH (16:36)
[2021-02-19] MEDS: ATORVASTATIN 10 MG TABLET PO SCH (17:12)
--- NOTE | 2021-02-19 18:30 | NUR ---
RN MS NOTES PT IN BED, RESTING, AWAKE, ALERT AND ORIENTED, NO COMPLAINT OF PAIN OR ANY DISCOMFORT, BREATHING PATTERN NORMAL, CALL LIGHT WITHIN REACH, AMBULATED ALONG THE HALLWAY WITH A WALKER WITH SLOW AND STEADY GAIT, PM MEDS GIVEN, ALL NEEDS ATTENDED.
--- NOTE | 2021-02-19 19:30 | NUR ---
MS RN OPENING NOTE RECEIVED PT AWAKE IN BED. A/O X4, [place] IN LEFT EAR. PT ON 2LPM O2 VIA NC TOLERATING WELL. NO SOB OR S/S OF RESPIRATORY DISTRESS NOTED. PT DENIES PAIN OR DISCOMFORT AT THIS TIME. IV ACCESS IN RAC #18 AND RFA INFUSING 1/2NS @ 75ML/HR, INTACT AND PATENT. SAFETY PRECAUTIONS MAINTAINED. BED IN LOWEST LOCKED POSITION, HOB ELEVATED, SIDE RAILS UP X2. CALL LIGHT AND TABLE WITHIN REACH. WILL CONTINUE WITH PLAN OF CARE.
[2021-02-19 20:37] VITALS: BP 151/52
[2021-02-19] MEDS: GABAPENTIN 300 MG CAPSULE PO SCH (21:09)
[2021-02-19] MEDS: INSULIN GLARGINE, 100 UNIT/ML CARTRIDGE SQ SCH (21:31)
--- NOTE | 2021-02-19 23:00 | NUR ---
PT TRANSFERRED TO ROOM 326-1.
--- NOTE | 2021-02-20 06:37 | NUR ---
RN NOTE PT REFUSED IV INSERTION X3. EDUCATED PT ON RISKS AND BENEFITS OF REFUSING IV ACCESS. PT CONTINUES TO REFUSE IV INSERTION. WILL CONTINUE TO MONITOR PT CLOSELY.
[2021-02-20 06:38] LABS: BASOPHILS # (AUTO) 0.1 K/uL (0.0-0.2); BASOPHILS % (AUTO) 0.9 % (0.0-2.0); EOSINOPHILS % (AUTO) 2.4 % (0.0-6.0); HEMATOCRIT 37 % (33-45); HEMOGLOBIN 12.4 g/dL (11.5-14.8); LYMPHOCYTES # (AUTO) 1.4 K/uL (0.8-4.8); LYMPHOCYTES % (AUTO) 20.3 % (20.0-44.0); MEAN CORPUSCULAR HGB CONC 33 g/dl (31.0-36.0); MEAN CORPUSCULAR VOLUME 94 fL (82-100); MONOCYTES # (AUTO) 0.7 K/uL (0.1-1.30); MONOCYTES % (AUTO) 9.7 % (2.0-12.0); NEUTROPHILS # (AUTO) 4.8 K/uL (1.8-8.9); NEUTROPHILS % (AUTO) 66.7 % (43.0-81.0); PLATELET COUNT (AUTO) 143 K/uL (150-450); RED BLOOD CELL COUNT(AUTO) 3.97 MIL/uL (4.0-5.2); WHITE BLOOD COUNT (AUTO) 7.1 K/uL (4.3-11.0)
--- NOTE | 2021-02-20 06:38 | NUR ---
MS RN CLOSING NOTE PT IS AWAKE IN BED. A/O X4, [place] IN LEFT EAR. PT ON 2LPM O2 VIA NC TOLERATING WELL. NO SOB OR S/S OF RESPIRATORY DISTRESS NOTED. PT DENIES PAIN OR DISCOMFORT AT THIS TIME. PT REFUSES IV INSERTION AT THIS TIME. ALL NEEDS HAVE BEEN MET. PAIN MANAGEMENT ADMINISTERED PER ORDER. SAFETY PRECAUTIONS MAINTAINED AT ALL TIMES. BED IN LOWEST LOCKED POSITION, HOB ELEVATED, SIDE RAILS UP X2. CALL LIGHT AND TABLE WITHIN REACH. WILL ENDORSE TO ONCOMING NURSE FOR ALLY.
[2021-02-20 07:07] LABS: CALCIUM, SERUM 8.1 mg/dL (8.5-10.1); CREATININE 1.3 mg/dL (0.6-1.3); MAGNESIUM 2.4 mg/dL (1.8-2.4); POTASSIUM 4.1 mmol/L (3.5-5.1)
--- NOTE | 2021-02-20 07:43 | NUR ---
RN OPENING NOTES Patient seen comfortably lying in bed, no SOB, breathing even and unlabored, no apparent distress noted, denies any pain or discomfort at this time. Call light left within reach, safety precautions in place, brakes locked, side rails up X 2, will monitor closely for any changes
[2021-02-20 08:00] VITALS: BP 126/80
[2021-02-20] MEDS ORDERED: ISOSORBIDE DINITRATE (20MG) 20 MG TABLET PO SCH (09:00)
[2021-02-20] MEDS ORDERED: CARVEDILOL 12.5 MG TABLET PO SCH (09:00)
[2021-02-20] MEDS: PANTOPRAZOLE 40 MG TABLET.DR PO SCH (10:14)
[2021-02-20] MEDS: CHOLECALCIFEROL 1,000 UNIT TABLET (VIT D3) PO SCH (10:14)
[2021-02-20] MEDS: CYANOCOBALAMIN 500 MCG TABLET PO SCH (10:15)
[2021-02-20] MEDS: ASPIRIN EC 81 MG TABLET.DR PO SCH (10:15)
[2021-02-20 10:16] VITALS: BP 128/58
[2021-02-20] MEDS: hydrALAZINE HCL 50 MG TABLET PO SCH (10:16)
[2021-02-20] MEDS ORDERED: CARV12.52 PO (12:13)
[2021-02-20] MEDS ORDERED: ISOS20TA8 PO (12:13)
--- NOTE | 2021-02-20 14:30 | NUR ---
Patient to be discharged home today, no apparent distress noted, denies any pain or discomfort. Patient made aware of the situation, she signed all discharge paperworks, all belongings given, inventory list signed by patient. Health teaching provided, patient also informed about new medications prescribed for her, verbalized understanding and gratitude. Skin intact, warm to touch, no pallor or cyanosis noted. Peripheral IV removed and covered with dry dressing. Name wristband removed prior to discharge. Patient left unit at 1430, stable condition, GREEN PLUMBER assisted patient via wheelchair going to the hospital lobby.
== END 2021-02-20 14:25 | disposition home health service (06) | DRG 302 ==
LOC: ER 12:44 → TELE 14:56 → MED 02-19 19:08
PROVIDERS: ATTEND Nurse Practitioner Acute Care
DX: I25.10 Atherosclerotic heart disease of native coronary artery without angina pectoris (principal); N17.0 Acute kidney failure with tubular necrosis; E78.5 Hyperlipidemia, unspecified; E11.40 Type 2 diabetes mellitus with diabetic neuropathy, unspecified; I11.0 Hypertensive heart disease with heart failure; I50.9 Heart failure, unspecified; Z20.822 Contact with and (suspected) exposure to COVID-19; D69.6 Thrombocytopenia, unspecified; E86.0 Dehydration; D64.9 Anemia, unspecified; Z79.82 Long term (current) use of aspirin; Z86.16 Personal history of COVID-19; Z79.84 Long term (current) use of oral hypoglycemic drugs; R00.1 Bradycardia, unspecified
CPT/HCPCS: 36415; 71045-TC; 75574; 80048-TC; 80061-TC; 82962-TC; 83735-TC; 83880; 84100-TC; 84443-TC; 84484-TC; 85025-TC; 87081-TC; C9803; G0378; J1650; J1815; J1885; J3490; Q9967